=== PATIENT | female | born 1950 | race Caucasian/White ===

== ENCOUNTER 2021-10-09 15:26 | Inpatient (IN) | payer MEDICARE, BC, SELFPAY ==
[2021-10-09] VITALS (28 sets, daily range): BP systolic 93–117; BP diastolic 44–61; PULSE 65–125; RESP 18–41; TEMP 37.4–39.2; O2SAT 92–100; BMI 31.8
--- NOTE | ~2021-10-09 | CT_ITS ---
EXAMINATION: CT abdomen pelvis w con DATE: 10/09/2021 17:51 INDICATION: Localized abdominal pain TECHNIQUE: Computed tomography (CT) of the abdomen and pelvis was performed with 100 mL Omnipaque-350 intravenous contrast. Automated exposure control and iterative reconstruction technique were employe d. The dose-length product was 739.58 mGy-cm. COMPARISON: None FINDINGS: Mild linear discoid atelectasis at the bilateral lung bases. Heart size is normal. Atherosclerotic co ronary artery calcifications. Aortic valve calcific a cyst. No pericardial or pleural effusion. Liver , gallbladder, spleen, pancreas and left adrenal gland are normal. 2.8 x 2.2 cm right adrenal mass. 1 .2 cm right renal cyst. Bilateral nephrolithiasis with 1.3 cm obstructing stone at the left ureterope lvic junction resulting in mild left hydronephrosis and mildly delayed left nephrogram. There is also some mildly thickened enhancing urothelium at the left renal pelvis and mild left perinephric strand ing which suggests potential for associated urinary tract infection. There are couple additional ston es measuring 1 mm and 3-4 mm in the inferior calyx of the right kidney as well as a 3 mm nonobstructi ng stone in an inferior calyx of the right kidney. No other more distal ureteral stones. Bladder uter us and bilateral adnexa are unremarkable. Small fat-containing umbilical hernia. Mild scattered colon ic diverticulosis without adjacent from 3 change to suggest appendicitis. No bowel obstruction. The a ppendix is not visualized. No pericecal inflammatory change to suggest acute appendicitis. No free in traperitoneal gas or fluid. No pathologically enlarged abdominal or pelvic lymphadenopathy. 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 Mild to modera te lumbar and lower thoracic spondylosis. IMPRESSION: 1. Bilateral nephrolithiasis with obstructing 1.3 cm stone at the left ureteropelvic junction with mi ld left hydronephrosis. Correlate with urinalysis to exclude associated urinary tract infection. 2. 2.8 x 2.2 cm right adrenal mass which in the absence of known malignancy is statistically most lik jo-ann to represent an adenoma. Recommend follow-up adrenal protocol pre and postcontrast MRI or CT. Reviewed, dictated and finalized at location A. IMPRESSION: 1. Bilateral nephrolithiasis with obstructing 1.3 cm stone at the left ureterop elvic junction with mild left hydronephrosis. Correlate with urinalysis to excl ude associated urinary tract infection. 2. 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 Recommend follow-up adrenal protocol pre and postcontrast MRI or CT.
--- NOTE | ~2021-10-09 | XR_ITS ---
EXAMINATION: XR retrograde pyelo w/stent LT DATE: 10/09/2021 23:52 CDT INDICATION: LT RETRO WITH STENT PLACEMENT . TECHNIQUE: 4 fluoroscopic images of the lower abdomen were obtained during left retrograde pyelograph y with stent placement performed by the surgeon. I was not present in the operating room. Fluoroscopy exposure time was 30.3 seconds. Cumulative dose was 0.28389 mGy2. COMPARISON: CT abdomen and pelvis, same date FINDINGS: Catheter access to the left collecting system, followed by wire access and contrast injection with th e final imaging demonstrated a left nephroureteral stent in position. IMPRESSION: Fluoroscopic documentation of left retrograde pyelography with stent placement. Please refer to the o perative note for complete procedural details . Reviewed, dictated and finalized at location K. IMPRESSION: Fluoroscopic documentation of left retrograde pyelography with stent placement. Please refer to the operative note for complete procedural details .
--- NOTE | ~2021-10-09 | XR_ITS ---
XR chest 2V 10/09/2021 16:00 Indication: Shortness of breath Procedure: 2 view chest Comparison: No prior studies for comparison. Findings: There is right middle lobe airspace disease, consistent with pneumonia. Heart size normal. Small left pleural effusion. No pneumothorax. Impression: 1: Right middle lobe pneumonia. 2: Small left pleural effusion. Reviewed, dictated and finalized at location A. Impression: 1: Right middle lobe pneumonia. 2: Small left pleural effusion.
--- NOTE | 2021-10-09 15:37 | ECG_ITS ---
Measurements Intervals [place] Rate: 87 P: 32 SD: 147 QRS: 26 QRSD: 90 T: 29 QT: 391 QTc: 472 Interpretive Statements SINUS RHYTHM NORMAL ECG NO PREVIOUS ECG AVAILABLE FOR COMPARISON Electronically Signed On 10-10-2021 9:57:56 CDT by Fernando Aquino M.D.
[2021-10-09 15:51] LABS: Hematocrit 34.5 % (37.0-47.0); Hemoglobin 11.2 g/dL (12.0-15.0); Mean Corpuscular HGB Conc 32.5 g/dl (32-36); Mean Corpuscular Hemoglobin 32.4 pg (26-34); Mean Corpuscular Volume 99.7 fl (80-100); Mean Platelet Volume 9.2 fl (7.4-10.4); Platelet Count Result 468 k/mm3 (150-375); Red Blood Count 3.46 M/mm3 (4.2-5.4); Red Cell Distribution Width 13.5 % (11.5-14.5); White Blood Count 18.9 K/mm3 (4.5-10.0)
[2021-10-09 16:00] LABS: Alanine Aminotransferase 17 U/L (6-35); Albumin Level 3.4 g/dL (3.5-5.1); Alkaline Phosphatase 82 U/L (38-126); Anion Gap 5 mmol/L (8-16); Aspartate Amino Transferase 25 U/L (14-36); Bilirubin,Total 0.9 mg/dL (0.2-1.3); Blood Urea Nitrogen 18 mg/dL (7-17); Calcium 8.5 mg/dL (8.4-10.2); Carbon Dioxide 25 mmol/L (22-30); Chloride 103 mmol/L (98-107); Estimated CRCL calculation 40 ml/min; Estimated Glomerular Filt Rate 40; Glucose 151 mg/dL (65-110); Potassium 3.6 mmol/L (3.4-5.0); Sodium 133 mmol/L (137-145)
[2021-10-09 16:11] LABS: Band Neutrophils Percent 18 % (0-6); Hypochromasia 1+ (NORMAL); Lymphocytes Absolute Manual 0.56 K/mm3 (1.1-4.5); Monocytes Absolute Manual 0.37 K/mm3 (0.1-0.90); Monocytes Percent Manual 2 % (3-9); Neutrophils Absolute Manual 17.95 K/mm3 (1.7-7.2); Neutrophils Percent Manual 77 % (46-73); Platelet Estimate Adequate (Adequate); Total Cells Counted 100
[2021-10-09] MEDS: SODIUM CHLORIDE 0.9% IV 1,000 ML 999 ML IV CONT ×2 (17:32→22:59)
--- NOTE | 2021-10-09 17:47 | ED.GENADULT ---
HPI - General Adult General Chief complaint: Unspecified Stated complaint: SOB, fever, dizzy Time Seen by Provider: 10/09/21 16:52 History of Present Illness HPI narrative: Patient is a 71-year-old female who presents ER with weakness and dizziness. Patient reports 2 weeks ago she began having diarrhea and vomiting. That lasted for 7 days. Since then she has been slowly reintroducing food and water but she has yet to have a bowel movement. She is also been feeling fatigued and like she cannot walk around due to this. She had to be helped off the floor today. Did not strike her head or lose consciousness. Patient reports when she goes from sitting to standing she gets very dizzy. Patient also reports left flank pain for the last 2 days. Related Data Allergies Allergy/AdvReac Type Severity Reaction Status Date / Time Cat Dander Allergy Unknown Uncoded 07/27/13 11:56 Dog Dander Allergy Unknown Uncoded 07/27/13 11:56 Molds and Smuts Allergy Unknown Uncoded 07/27/13 11:56 Review of Systems Review of Systems: All systems reviewed & are unremarkable except as noted in HPI and below Constitutional: Constitutional: Reports chills, Reports fatigue and Reports fever(s) Cardiovascular: Cardiovascular: Denies chest pain, Denies radiating jaw, neck or arm pain and Denies dyspnea on exertion Respiratory: Respiratory: Denies chest congestion and Denies cough Gastrointestinal: Gastrointestinal: Denies abdominal pain, Reports diarrhea, Reports nausea and Reports vomiting Genitourinary: Genitourinary: Denies nocturia, Denies dysuria and Reports flank pain PMFSH Past Medical History Medical History (Updated 10/09/21 @ 19:28 by Quirino Grant MD) Hypercholesterolemia Hypothyroidism Surgical History Surgical History (Updated 10/09/21 @ 19:27 by Quirino Grant MD) History of appendectomy History of section Social History Social History (Updated 10/09/21 @ 19:27 by Quirino Grant MD) Smoking status: Current every day smoker Exam Narrative: GENERAL: Well-appearing, well-nourished, and in no acute distress. HEAD: Normocephalic, atraumatic. EYES: PERRL and EOMI. ENT: Mucous membranes moist. CHEST: Clear to auscultation. No respiratory distress. HEART: Regular rate and rhythm. Normal peripheral pulses. ABDOMEN: Soft, nontender, nondistended. EXTREMITIES: Normal range of motion. No edema. SKIN: Warm, dry, no rash. NEURO: Alert and oriented x3. PSYCH: Normal mood and affect. Course Course Emergency Course: Patient resting comfortably and looks well. Informed of results. Contacted urology who will plan to take patient to the OR tomorrow. Patient started on ceftriaxone. Admit to hospital service per Vital Signs Vital signs: Vital Signs Temperature 101.0 F H 10/09/21 15:41 Pulse Rate 86 10/09/21 15:41 Respiratory Rate 18 10/09/21 15:41 Blood Pressure 100/47 L 10/09/21 15:41 Pulse Oximetry 95 10/09/21 15:41 Oxygen Delivery Room Air 10/09/21 15:41 Temperature 101.0 F H 10/09/21 15:41 Pulse Rate 74 10/09/21 18:59 Respiratory Rate 18 10/09/21 18:59 Blood Pressure 117/61 10/09/21 18:59 Pulse Oximetry 97 10/09/21 18:59 Oxygen Delivery Room Air 10/09/21 15:41 Medical Decision Making Vital Signs Vital Signs: Vital Signs Temperature 101.0 F H 10/09/21 15:41 Pulse Rate 86 10/09/21 15:41 Respiratory Rate 18 10/09/21 15:41 Blood Pressure 100/47 L 10/09/21 15:41 Pulse Oximetry 95 10/09/21 15:41 Oxygen Delivery Room Air 10/09/21 15:41 Temperature 101.0 F H 10/09/21 15:41 Pulse Rate 74 10/09/21 18:59 Respiratory Rate 18 10/09/21 18:59 Blood Pressure 117/61 10/09/21 18:59 Pulse Oximetry 97 10/09/21 18:59 Oxygen Delivery Room Air 10/09/21 15:41 Lab Data Result diagrams: 10/09/21 15:43 10/09/21 15:43 Labs: Lab Results 10/09/21 10/09/21 10/09/21 Range/Units 15:43 15:43 17:
[2021-10-09 18:38] LABS: Appearance Urine Slightly Cloudy (Clear); Bilirubin Urine Negative (Negative); Blood Urine 2+ (Negative); Color Urine Yellow (Yellow); Glucose Urine UA Negative (Negative); Ketones Urine Negative (Negative); Leukocyte Esterase Ur 3+ LEU/UL (Negative); Nitrate Urine Positive (Negative); Protein Urine Negative (Negative); Specific Grav Ur <= 1.005 (1.001-1.035); Urobilinogen Urine 0.2 mg/dL (<2.0); pH Urine 5.5 (5.0-9.0)
[2021-10-09 18:41] LABS: Add Urine Microscopic? YES; Bacteria Urine Trace /hpf; Mucus Urine Rare /lpf; Squamous Epithelial Cell Urine Occasional /hpf (Few); WBC Urine >75 /hpf
--- NOTE | 2021-10-09 19:51 | ED.GENADULT ---
HPI - General Adult General Chief complaint: Unspecified Stated complaint: SOB, fever, dizzy Time Seen by Provider: 10/09/21 16:52 Related Data Home Medications Medication Instructions Recorded Confirmed albuterol sulfate 90 mcg/actuation 1 puff inhalation DAILY 10/09/21 10/09/21 aerosol inhaler levothyroxine 100 mcg tablet 100 mcg PO DAILY 10/09/21 10/09/21 levothyroxine 25 mcg tablet 25 mcg PO DAILY 10/09/21 10/09/21 loteprednol etabonate 0.2 % eye 1 drp EACH EYE DAILY 10/09/21 10/09/21 drops,suspension (Alrex) montelukast 10 mg tablet 10 mg PO DAILY 10/09/21 10/09/21 simvastatin 40 mg tablet 40 mg PO HS 10/09/21 10/09/21 Allergies Allergy/AdvReac Type Severity Reaction Status Date / Time Cat Dander Allergy Unknown Uncoded 07/27/13 11:56 Dog Dander Allergy Unknown Uncoded 07/27/13 11:56 Molds and Smuts Allergy Unknown Uncoded 07/27/13 11:56 [facility] Past Medical History Medical History (Updated 10/09/21 @ 23:36 by Nino Kessler MD) Asthma Hypercholesterolemia Hypothyroidism Obesity Sepsis due to urinary tract infection Surgical History Surgical History History of appendectomy History of section Family History Family History Mother Cerebrovascular accident Father Emphysema lung Sibling AAA (abdominal aortic aneurysm) Sibling Rheumatoid arteritis Social History Social History Smoking packs per day: 1 Smoking cigarettes per day: 20.0 Years smoked: 50 Smoking pack-years: 50.00 Smoking status: Former smoker Tobacco type: cigarettes Second hand tobacco smoke exposure: Yes Alcohol intake: never Substance use: never Spiritual care concerns: No Course Vital Signs Vital signs: Vital Signs Temperature 101.0 F H 10/09/21 15:41 Pulse Rate 86 10/09/21 15:41 Respiratory Rate 18 10/09/21 15:41 Blood Pressure 100/47 L 10/09/21 15:41 Pulse Oximetry 95 10/09/21 15:41 Oxygen Delivery Room Air 10/09/21 15:41 Temperature 97.5 F L 10/10/21 00:25 Pulse Rate 67 10/10/21 00:40 Respiratory Rate 20 10/10/21 00:40 Blood Pressure 94/54 L 10/10/21 00:40 Pulse Oximetry 97 10/10/21 00:40 Oxygen Delivery Nasal Cannula 10/10/21 00:40 Oxygen Flow Rate 4 10/10/21 00:40 Medical Decision Making Vital Signs Vital Signs: Vital Signs Temperature 101.0 F H 10/09/21 15:41 Pulse Rate 86 10/09/21 15:41 Respiratory Rate 18 10/09/21 15:41 Blood Pressure 100/47 L 10/09/21 15:41 Pulse Oximetry 95 10/09/21 15:41 Oxygen Delivery Room Air 10/09/21 15:41 Temperature 97.5 F L 10/10/21 00:25 Pulse Rate 67 10/10/21 00:40 Respiratory Rate 20 10/10/21 00:40 Blood Pressure 94/54 L 10/10/21 00:40 Pulse Oximetry 97 10/10/21 00:40 Oxygen Delivery Nasal Cannula 10/10/21 00:40 Oxygen Flow Rate 4 10/10/21 00:40 Lab Data Result diagrams: 10/09/21 15:43 10/09/21 15:43 Labs: Lab Results 10/09/21 10/09/21 10/09/21 Range/Units 15:43 15:43 17:59 WBC 18.9 H (4.5-10.0) K/mm3 RBC 3.46 L (4.2-5.4) M/mm3 Hgb 11.2 L (12.0-15.0) g/dL Hct 34.5 L (37.0-47.0) % MCV 99.7 (80-100) fl MCH 32.4 (26-34) pg MCHC 32.5 (32-36) g/dl RDW 13.5 (11.5-14.5) % Plt Count 468 H (150-375) k/mm3 MPV 9.2 (7.4-10.4) fl Immature Gran % (Auto) Not Reportable Neut % (Auto) Not Reportable Lymph % (Auto) Not Reportable Granite % (Auto) Not Reportable Eos % (Auto) Not Reportable Baso % (Auto) Not Reportable Lymph # (Auto) Not Reportable Granite # (Auto) Not Reportable Eos # (Auto) Not Reportable Baso # (Auto) Not Reportable Abs Immat Gran (auto) Not Reportable Absolute Neuts (auto) Not Reportable Absolute Nucleated RBC Not Re
--- NOTE | 2021-10-09 19:58 | PM.EVENT ---
Event Note Event Note Event Note: Discussed with ED provider. 13 mm left UPJ stone with mild hydro and evidence of UTI. Vitals all stable. Broad spectrum antibiotics have been ordered by ED. Fluids should be administered aggressively. She's scheduled for a ureteral stent placement as the first case tomorrow morning. If she destabilizes overnight-- tachycardic, hypotensive, T>101, mental status changes, etc., then urology should be paged and we will proceed more urgently overnight to the OR.
[2021-10-09] MEDS: ALBUTEROL SULFATE NEB 2.5 MG/3 ML INH 10 MG INHALATION (20:46)
[2021-10-09] MEDS: ONDANSETRON INJ 4 MG/2 ML VIAL IV PUSH (21:11)
[2021-10-09] MEDS: methylPREDNISolone SOD SUCC 125 MG VIAL IV PUSH (21:12)
[2021-10-09 21:14] LABS: SARS-CoV-2 RNA PCR Negative
--- NOTE | 2021-10-09 21:49 | PC.NURSE ---
RN REPORT GIVEN TO IMU NURSE AT THIS TIME. SARA MCKINNON SUP
[2021-10-09 21:57] LABS: Alveolar/Arterial O2 Gradient 314.2 mmHg; Base Excess ABG 1.8 mEq/l (+/-2.0); Device NON-INVASIVE VENT; Fractional Inspired Oxygen 80 %; HCO3 ABG 25.4 mEq/l (22.0-26.0); Modified Allen's Test Pass; Oxygen Content ABG 16.5 %vol (16.0-22.0); Oxygen Saturation ABG 99.5 % (95.0-100.0); PCO2 ABG 36.3 mmHg (35.0-45.0); PO2 ABG 218.1 mmHg (80.0-100.0); PO2 FiO2 Ratio Arterial Blood 2.73 %; Site Drawn RIGHT RADIAL; Total Hemoglobin 11.6 g/dL (12.0-18.0); pH ABG 7.463 (7.350-7.450)
[2021-10-09 21:58] LABS: Non-Invasive Expiratory Pressure 7 CMH2O; Non-Invasive Inspiratory Pressure 15 CMH2O; Non-Invasive Vent Rate 18 /MIN
--- NOTE | 2021-10-09 22:05 | PC.NURSE ---
This patient, Tess Garcia, was admitted to IMU Room 214-01 at 2204. Patient/family oriented to hospital policies and general routines including ID bracelet, bed and alarms, visiting hours, pain management, procedures, bathroom and other care routines, personal items, smoking policy, room service/diet, and visiting hours. Information on how to activate the Rapid Response Team has been discussed. Patient/Family are encouraged to report perceived risks to care and to ask questions if they do not understand what they are told or what they should do.
--- NOTE | 2021-10-09 23:12 | PC.NURSE ---
Alejo Friedman TEST DEPARTMENT HELPER here to evaluate patient for surgery tonight.
--- NOTE | 2021-10-09 23:28 | WPDANESEPPF ---
Anes - Initial Pre Proc Eval Procedure: Operation Date: 10/09/21 11:30 Proposed Procedures p Cysto, RPG, Stone Ext, Stent Placement(Left) - Nino Kessler MD Date/Time: 10/09/21 23:28 Surgeon: John Frank MD Pre Op Diagnosis: Ureterolithiasis, UTI Patient Data Age: 71 Gender: F Height: 1.65 m Weight: 87 kg Last Vital Signs Temp 37.4 C 10/09/21 22:10 Pulse 114 H 10/09/21 22:10 Resp 20 10/09/21 22:10 BP 97/45 L 10/09/21 22:10 Pulse Ox 94 10/09/21 22:10 O2 Del Method BiPAP 10/09/21 21:45 Allergies Allergy/AdvReac Type Severity Reaction Status Date / Time Cat Dander Allergy Unknown Uncoded 07/27/13 11:56 Dog Dander Allergy Unknown Uncoded 07/27/13 11:56 Molds and Smuts Allergy Unknown Uncoded 07/27/13 11:56 Home Medications Medication Instructions Recorded Confirmed Type albuterol sulfate 90 mcg/actuation 1 puff inhalation DAILY 10/09/21 10/09/21 History aerosol inhaler levothyroxine 100 mcg tablet 100 mcg PO DAILY 10/09/21 10/09/21 History levothyroxine 25 mcg tablet 25 mcg PO DAILY 10/09/21 10/09/21 History loteprednol etabonate 0.2 % eye 1 drp EACH EYE DAILY 10/09/21 10/09/21 History drops,suspension (Alrex) montelukast 10 mg tablet 10 mg PO DAILY 10/09/21 10/09/21 History simvastatin 40 mg tablet 40 mg PO HS 10/09/21 10/09/21 History Laboratory Tests 10/09/21 10/09/21 10/09/21 15:43 15:43 17:59 WBC 18.9 K/mm3 H K/mm3 (4.5-10.0) RBC 3.46 M/mm3 L M/mm3 (4.2-5.4) Hgb 11.2 g/dL L g/dL (12.0-15.0) Hct 34.5 % L % (37.0-47.0) MCV 99.7 fl fl (80-100) MCH 32.4 pg pg (26-34) MCHC 32.5 g/dl g/dl (32-36) RDW 13.5 % % (11.5-14.5) Plt Count 468 k/mm3 H k/mm3 (150-375) MPV 9.2 fl fl (7.4-10.4) Immature Gran % (Auto) Not Reportable Neut % (Auto) Not Reportable Lymph % (Auto) Not Reportable [place] % (Auto) Not Reportable Eos % (Auto) Not Reportable Baso % (Auto) Not Reportable Lymph # (Auto) Not Reportable [place] # (Auto) Not Reportable Eos # (Auto) Not Reportable Baso # (Auto) Not Reportable Abs Immat Gran (auto) Not Reportable Absolute Neuts (auto) Not Reportable Absolute Nucleated RBC Not Reportable Total Counted 100 Neutrophils % (Manual) 77 % H % (46-73) Band Neutrophils % 18 % H % (0-6) Lymphocytes % (Manual) 3.0 % L % (18-44) Monocytes % (Manual) 2 % L % (3-9) Nucleated RBC % Not Reportable Abs Neuts (Manual) 17.95 K/mm3 H K/mm3 (1.7-7.2) Abs Lymphs (Manual) 0.56 K/mm3 L K/mm3 (1.1-4.5) Abs Monocytes (Manual) 0.37 K/mm3 K/mm3 (0.1-0.90) Platelet Estimate Adequate (Adequate) Hypochromasia 1+ (NORMAL) Puncture Site ABG pH ABG pCO2 ABG pO2 ABG PO2/FiO2 Ratio ABG HCO3 ABG O2 Saturation ABG O2 Content ABG Base Excess A-a Gradient Oxyhemoglobin Total Hemoglobin O2 Delivery Device O2 Liters/Min Vent Rate FiO2 Expiratory Pressure Inspiratory Pressure Sodium 133 mmol/L L mmol/L (137-145) Potassium 3.6 mmol/L mmol/L (3.4-5.0) Chloride 103 mmol/L mmol/L (98-107) Carbon Dioxide 25 mmol/L mmol/L (22-30) Anion Gap 5 mmol/L L mmol/L (8-16) BUN 18 mg/dL H mg/dL (7-17) Creatinine 1.30 mg/dL H mg/dL (0.7-1.0) Estim Creat Clear Calc 40 ml/min ml/min Estimated GFR 40 L (59 - ) Glucose 151 mg/dL H mg/dL (65-110) Calcium 8.5 mg/dL mg/dL
--- NOTE | 2021-10-09 23:33 | WPDURCON ---
Assessment and Plan Assessment and plan (1) Ureterolithiasis: Code(s): N20.1 - Calculus of ureter Status: Acute (2) Sepsis due to urinary tract infection: Code(s): A41.9 - Sepsis, unspecified organism; N39.0 - Urinary tract infection, site not specified Status: Acute Assessment and Plan: 71F with 13mm left UPJ stone and infected urine becoming septic - proceed with cystoscopy and left ureteral stent placement - she understands that she will need delayed stone management in a few weeks once infection is cleared generally with ESWL and stent removal; all questions answered; proceed with left ureteral stent placement [facility] Consult Note HPI Date Seen: 10/09/21 Requesting Physician: John Frank MD Primary Care Provider: Owen Casey, PA Consult Narrative Narrative: Tess Garcia is a very nice 71 year old female with a 13mm left UPJ stone who has become pretty clearly septic with tachycardia, fever, and some oxygen requirement. No prior history of stones. Smoker. CT: a few scattered small stones <2mm, 13 mm left UPJ stone with enhancement of the urothelium, HU 950, mild hydro UA infected with nit+ WBC 18 Creat normal Vitals were normal --> now tachycardic, febrile, and becoming hypotensive Review of Systems Review of Systems: All systems reviewed & are unremarkable except as noted in HPI and below PMFSH Past Medical History Medical History (Updated 10/09/21 @ 23:36 by Nino Kessler MD) Asthma Hypercholesterolemia Hypothyroidism Obesity Sepsis due to urinary tract infection Surgical History Surgical History History of appendectomy History of section Family History Family History Mother Cerebrovascular accident Father Emphysema lung Sibling AAA (abdominal aortic aneurysm) Sibling Rheumatoid arteritis Social History Social History Smoking packs per day: 1 Smoking cigarettes per day: 20.0 Years smoked: 50 Smoking pack-years: 50.00 Smoking status: Former smoker Tobacco type: cigarettes Second hand tobacco smoke exposure: Yes Alcohol intake: never Substance use: never Spiritual care concerns: No Meds Home Medications and Allergies Home Medications Medication Instructions Recorded Confirmed Type albuterol sulfate 90 mcg/actuation 1 puff inhalation DAILY 10/09/21 10/09/21 History aerosol inhaler levothyroxine 100 mcg tablet 100 mcg PO DAILY 10/09/21 10/09/21 History levothyroxine 25 mcg tablet 25 mcg PO DAILY 10/09/21 10/09/21 History loteprednol etabonate 0.2 % eye 1 drp EACH EYE DAILY 10/09/21 10/09/21 History drops,suspension (Alrex) montelukast 10 mg tablet 10 mg PO DAILY 10/09/21 10/09/21 History simvastatin 40 mg tablet 40 mg PO HS 10/09/21 10/09/21 History Allergies Allergy/AdvReac Type Severity Reaction Status Date / Time Cat Dander Allergy Unknown Uncoded 07/27/13 11:56 Dog Dander Allergy Unknown Uncoded 07/27/13 11:56 Molds and Smuts Allergy Unknown Uncoded 07/27/13 11:56 Vital Signs Vital Signs - 24 hr 10/09/21 15:41 10/09/21 18:59 10/09/21 18:59 Temperature 38.3 C H Pulse Rate 86 74 74 Respiratory Rate 18 18 Blood Pressure 100/47 L 117/61 Pulse Oximetry 95 97 Oxygen Delivery Room Air 10/09/21 21:11 10/09/21 21:55 10/09/21 17:37 Temperature 39.2 C H 38.4 C H Pulse Rate 65 Respiratory Rate 21 H Blood Pressure Pulse Oximetry 94 Oxygen Delivery 10/09/21 17:51 10/09/21 18:00 10/09/21 18:15 Temperature Pulse Rate 82 80 73 Respiratory Rate 20 18 23 H Blood Pressure Pulse Oximetry 95 97 96 Oxygen Delivery 10/09/21 18:30 10/09/21 19:14 10/09/21 19:56 Temperature Pulse Rate 75 77 86 Respiratory Rate 24 H 24 H 27 H Blood Pressure Pulse
--- NOTE | 2021-10-09 23:37 | PC.NURSE ---
To OR per bed, IV NS running at 999. Report given to Alejo Friedman CRNA.
[2021-10-09] MEDS: LACTATED RINGERS 1,000 ML 30 ML IV CONT (23:45)
[2021-10-10] VITALS (23 sets, daily range): BP systolic 90–114; BP diastolic 50–66; PULSE 50–101; RESP 16–24; TEMP 36–37; O2SAT 93–100
--- NOTE | 2021-10-10 00:06 | P.OP_ITS ---
Procedure Note - Detailed Date of Procedure 10/10/21 Pre-op Diagnosis Ureterolithiasis, UTI Post-op Diagnosis Same Procedure Performed cysto, left retrograde pyelogram, left ureteral stent insertion, Mckeon insertion Surgeon Nino Kessler MD Indications sepsis from obstructive pyelonephritis Findings 1. Large radiopaque stone at the left UPJ 2. Stent in appropriate position 3. Pus poured out of the kidney after stent placement Description of Procedure Patient is brought back to the operative room. She was prepped and draped, padded per protocol. Sedation was utilized. Time-out performed. The bladder was entered with the blunt hot metal car operator. Scope was inserted. Clear cystitis, cloudy urine, erythematous. Fluoroscopy showed the left stone was visible at the UPJ. A Splystson wire was unable to be advanced past the stone. An open- ended ureteral catheter was advanced to the proximal ureter, just distal to the stone. Retrograde pyelogram was performed which eventually pushed the stone up into the kidney. There is minimal hydronephrosis. A Glidewire was then able to be advanced up into the renal pelvis. Pus began pouring out of the kidney. A 6 Bulgarian variable length stent was advanced over the wire. Good curl was noted in the renal pelvis on fluoroscopy and a good curl was visualized in the bladder. Because of the severity of her infection, Mckeon catheter was left in place to be removed in a day or 2 as the infection gets under control.
[2021-10-10] MEDS: SODIUM CHLORIDE 0.9% IV 1,000 ML 125 ML IV CONT ×4 (01:10→21:35)
--- NOTE | 2021-10-10 01:18 | PC.NURSE ---
Received from PACU at 2350 via bed. VSS, NS bolus complete, NS started at 125ml/hr.
--- NOTE | 2021-10-10 01:23 | PM.IMHP ---
H&P: HPI History of Present Illness Date/Time: 10/10/21 01:23 Chief Complaint: rigors Narrative: This is a 71-year-old female with past medical history significant for COPD, hypothyroidism, patient presented to the emergency room with violent rigors, chills, for the last 2 days or so, back pain, flank pain, with radiation to the front. preliminary workup was significant for CT of abdomen and pelvis with large stone at the UP junction[place] [id number], chemistry panel BUN was 18 creatinine was 1.3. Patient has been in her usual state of health prior to these. AT THE TIME OF MY VISIT IN THE EMERGENCY ROOM PATIENT WAS HAVING A FIT OF RIGORS Was unable to give much history. patient later on went for a retrograde pyelogram with stent placement by Urology. Preliminary workup was significant for CT of abdomen and pelvis as follows: IMPRESSION: 1. Bilateral nephrolithiasis with obstructing 1.3 cm stone at the left ureteropelvic junction with mild left hydronephrosis. Correlate with urinalysis to exclude associated urinary tract infection. 2. 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 Recommend follow-up adrenal protocol pre and postcontrast MRI or CT. Review of Systems Review of Systems: rigors, chills, fevers, back pain, left flank pain, poor appetite, nausea and vomiting. Constitutional: Constitutional: Reports chills, Reports fever(s), Reports malaise, Reports poor appetite and Reports weakness Eyes: Eyes: Denies change in vision ENT: Denies dysphagia, Denies vertigo and Denies odynophagia Cardiovascular: Cardiovascular: Denies chest pain, Denies syncope, Denies irregular heart rhythm, Denies lightheadedness, Denies palpitations and Denies dyspnea on exertion Respiratory: Respiratory: Denies chest congestion, Denies cough, Denies excessive phlegm production, Denies pain on inspiration, Denies pain with cough and Denies dyspnea on exertion Gastrointestinal: Gastrointestinal: Reports abdominal pain ( Flank pain), Denies dyspepsia, Denies heartburn, Reports diarrhea, Reports nausea and Denies vomiting Genitourinary: Genitourinary: Reports flank pain ( left-sided) Musculoskeletal: Musculoskeletal: Denies abnormal gait, Reports back pain and Reports myalgias Integumentary/Breasts: Skin/Breast: Denies rash Neurologic: Denies vertigo, Denies dizziness, Denies syncope, Denies focal weakness and Denies Sensory deficit (Neuro) Psychiatric: Psychiatric: Reports no additional psychiatric complaints Endocrine: Endocrine: Denies cold intolerance, Denies fatigue, Denies flushing, Denies heat intolerance, Denies polyphagia, Denies polydipsia and Denies palpitations Hematologic/Lymphatic: Hematologic/Lymphatic: Reports no additional hematologic/lymphatic complaints and Reports as per HPI Allergic/Immunologic: Allergic/Immunologic: Reports no additional allergic/immunologic complaints and Reports as per HPI PMFSH Past Medical History Medical History (Updated 10/10/21 @ 01:24 by John Frank MD) Asthma Hypercholesterolemia Hypothyroidism Obesity Sepsis due to urinary tract infection Surgical History Surgical History History of appendectomy History of section Family History Family History Mother Cerebrovascular accident Father Emphysema lung Sibling AAA (abdominal aortic aneurysm) Sibling Rheumatoid arteritis Social History Social History Smoking packs per day: 1 Smoking cigarettes per day: 20.0 Years smoked: 50 Smoking pack-years: 50.00 Smoking status: Former smoker Tobacco type: cigarettes Second hand tobacco smoke exposure: Yes Alcohol intake: never Substance use: never Spiritual care concerns: No Meds Ho
[2021-10-10 06:13] LABS: Hematocrit 32.2 % (37.0-47.0); Hemoglobin 10.1 g/dL (12.0-15.0); Mean Corpuscular HGB Conc 31.4 g/dl (32-36); Mean Corpuscular Hemoglobin 32.2 pg (26-34); Mean Corpuscular Volume 102.5 fl (80-100); Mean Platelet Volume 9.4 fl (7.4-10.4); Platelet Count Result 368 k/mm3 (150-375); Red Blood Count 3.14 M/mm3 (4.2-5.4); Red Cell Distribution Width 13.8 % (11.5-14.5); White Blood Count 18.9 K/mm3 (4.5-10.0)
[2021-10-10 06:28] LABS: Alanine Aminotransferase 14 U/L (6-35); Alkaline Phosphatase 69 U/L (38-126); Anion Gap 6 mmol/L (8-16); Aspartate Amino Transferase 19 U/L (14-36); Bilirubin,Total 0.5 mg/dL (0.2-1.3); Blood Urea Nitrogen 16 mg/dL (7-17); Calcium 8.5 mg/dL (8.4-10.2); Carbon Dioxide 24 mmol/L (22-30); Chloride 108 mmol/L (98-107); Estimated CRCL calculation 42 ml/min; Estimated Glomerular Filt Rate 44; Glucose 189 mg/dL (65-110); Potassium 4.1 mmol/L (3.4-5.0); Sodium 138 mmol/L (137-145)
[2021-10-10] MEDS: LEVOTHYROXINE SODIUM 25 MCG TABLET PO (06:36)
[2021-10-10] MEDS: LEVOTHYROXINE SODIUM 100 MCG TABLET PO (06:36)
--- NOTE | 2021-10-10 09:18 | WPDANESPN ---
Anes - Prog Note Post-Op Date/Time: 10/10/21 09:18 Cardiovascular status: normal Respiratory status: normal Airway patency: baseline Mental status: baseline Post-Op hydration status: other (nurse reports pt hypotensive this morning.will have fluid challenge) Vital Signs: Last Vital Signs Temp 97.4 F L 10/10/21 08:00 Pulse 50 L 10/10/21 08:00 Resp 16 10/10/21 08:00 BP 93/53 L 10/10/21 08:00 Pulse Ox 94 10/10/21 09:12 O2 Del Method Room Air 10/10/21 09:12 O2 Flow Rate 2 10/10/21 08:58 Pain Score (VAS): 0 I/O: Intake & Output 10/09/21 10/10/21 10/10/21 23:59 07:59 15:59 Intake Total 1350 1200 Output Total 645 Balance 1350 555 Laboratory Tests 10/10/21 05:59 10/10/21 05:59 10/09/21 10/09/21 10/09/21 15:43 15:43 17:59 WBC 18.9 H RBC 3.46 L Hgb 11.2 L Hct 34.5 L MCV 99.7 MCH 32.4 MCHC 32.5 RDW 13.5 Plt Count 468 H MPV 9.2 Immature Gran % (Auto) Not Reportable Neut % (Auto) Not Reportable Lymph % (Auto) Not Reportable [place] % (Auto) Not Reportable Eos % (Auto) Not Reportable Baso % (Auto) Not Reportable Lymph # (Auto) Not Reportable [place] # (Auto) Not Reportable Eos # (Auto) Not Reportable Baso # (Auto) Not Reportable Abs Immat Gran (auto) Not Reportable Absolute Neuts (auto) Not Reportable Absolute Nucleated RBC Not Reportable Total Counted 100 Neutrophils % (Manual) 77 H Band Neutrophils % 18 H Lymphocytes % (Manual) 3.0 L Monocytes % (Manual) 2 L Nucleated RBC % Not Reportable Abs Neuts (Manual) 17.95 H Abs Lymphs (Manual) 0.56 L Abs Monocytes (Manual) 0.37 Platelet Estimate Adequate Hypochromasia 1+ Puncture Site ABG pH ABG pCO2 ABG pO2 ABG PO2/FiO2 Ratio ABG HCO3 ABG O2 Saturation ABG O2 Content ABG Base Excess A-a Gradient Oxyhemoglobin Total Hemoglobin O2 Delivery Device O2 Liters/Min Vent Rate FiO2 Expiratory Pressure Inspiratory Pressure Sodium 133 L Potassium 3.6 Chloride 103 Carbon Dioxide 25 Anion Gap 5 L BUN 18 H Creatinine 1.30 H Estim Creat Clear Calc 40 Estimated GFR 40 L Glucose 151 H Calcium 8.5 Total Bilirubin 0.9 AST 25 ALT 17 Alkaline Phosphatase 82 Total Protein 7.0 Albumin 3.4 L Urine Color Yellow Urine Appearance Slightly cloudy Urine pH 5.5 Ur Specific [place] <= 1.005 Urine Protein Negative Urine Glucose (UA) Negative Urine Ketones Negative Ur Blood (Man) 2+ H Urine Nitrate Positive H Urine Bilirubin Negative Urine Urobilinogen 0.2 Leukocyte Esterase Rfl 3+ H Urine RBC 6-10 H Urine WBC >75 H Ur Squamous Epith Cells Occasional Urine Bacteria Trace Urine Mucus Rare SARS-CoV-2 RNA (RT-PCR) 10/09/21 10/09/21 10/10/21 20:33 21:45 05:59 WBC 18.9 H RBC 3.14 L Hgb 10.1 L Hct 32.2 L MCV 102.5 H MCH 32.2 MCHC 31.4 L RDW 13.8 Plt Count 368 MPV 9.4 Immature Gran % (Auto) Neut % (Auto) Lymph % (Auto) [place] % (Auto) Eos % (Auto) Baso % (Auto) Lymph # (Auto) [place] # (Auto) Eos # (Auto) Baso # (Auto) Abs Immat Gran (auto) Absolute Neuts (auto) Absolute Nucleated RBC Total Counted Neutrophils % (Manual) Band Neutrophils % Lymphocytes % (Manual) Monocytes % (Manual) Nucleated RBC % Abs Neuts (Manual) Abs Lymphs (Manual) Abs Monocytes (Manual) Platelet Estimate Hypochromasia Puncture Site Right radial ABG pH 7.463 H ABG pCO2 36.3 ABG pO2 218.1 H ABG PO2/FiO2 Ratio 2.73 ABG HCO3 25.4 ABG O2 Saturation 99.5 ABG O2 Content 16.5 ABG Base Excess 1.8 A-a Gradient 314.2 Oxyhemoglobin 98.0 Total Hemoglobin 11.6 L O2 Delivery Device Non-invasive vent O2 Liters/Min Not Reportable Vent Rate 18 FiO2 80 Expir
[2021-10-10] MEDS: MONTELUKAST SODIUM 10 MG TABLET PO (09:54)
[2021-10-10] MEDS: SIMVASTATIN 20 MG TABLET 40 MG PO (21:19)
[2021-10-10] MEDS: polyethylene glycoL 3350 17 GM POWD.PACK PO (21:20)
[2021-10-11] VITALS (12 sets, daily range): BP systolic 111–145; BP diastolic 50–68; PULSE 47–73; RESP 15–22; TEMP 36.2–36.7; O2SAT 73–99
[2021-10-11] MEDS: LEVOTHYROXINE SODIUM 25 MCG TABLET PO (06:03)
[2021-10-11] MEDS: LEVOTHYROXINE SODIUM 100 MCG TABLET PO (06:03)
[2021-10-11 06:23] LABS: Hematocrit 31.6 % (37.0-47.0); Hemoglobin 9.4 g/dL (12.0-15.0); Mean Corpuscular HGB Conc 29.7 g/dl (32-36); Mean Corpuscular Hemoglobin 32.3 pg (26-34); Mean Corpuscular Volume 108.6 fl (80-100); Mean Platelet Volume 10.2 fl (7.4-10.4); Platelet Count Result 242 k/mm3 (150-375); Red Blood Count 2.91 M/mm3 (4.2-5.4); Red Cell Distribution Width 13.9 % (11.5-14.5); White Blood Count 16.2 K/mm3 (4.5-10.0)
[2021-10-11 06:35] LABS: Anion Gap 8 mmol/L (8-16); Blood Urea Nitrogen 23 mg/dL (7-17); Calcium 8.3 mg/dL (8.4-10.2); Carbon Dioxide 20 mmol/L (22-30); Chloride 110 mmol/L (98-107); Estimated CRCL calculation 51 ml/min; Estimated Glomerular Filt Rate 55; Glucose 111 mg/dL (65-110); Potassium 4.7 mmol/L (3.4-5.0); Sodium 138 mmol/L (137-145)
[2021-10-11] MEDS: SODIUM CHLORIDE 0.9% IV 1,000 ML 125 ML IV CONT ×2 (09:19→17:20)
[2021-10-11] MEDS: MONTELUKAST SODIUM 10 MG TABLET PO (09:20)
--- NOTE | 2021-10-11 10:22 | PM.IMPN ---
Progress Note: A&P Assessment and Plan (1) Sepsis due to urinary tract infection: Code(s): A41.9 - Sepsis, unspecified organism; N39.0 - Urinary tract infection, site not specified Status: Acute Assessment and Plan: patient is on broad-spectrum antibiotics early goal therapy ongoing cultures in progress Continue IV antibiotics (2) UTI (urinary tract infection): Code(s): N39.0 - Urinary tract infection, site not specified Status: Acute Assessment and Plan: continue antibiotics (3) Ureterolithiasis: Code(s): N20.1 - Calculus of ureter Status: Acute Assessment and Plan: patient is now status post retrograde pyelograms with left-sided stent placement (4) Acute respiratory failure with hypoxia: Code(s): J96.01 - Acute respiratory failure with hypoxia Status: Acute Assessment and Plan: on supplemental oxygen by BiPAP ABG was 7.4 /39/214 Subjective Date/time seen: 10/11/21 10:22 No complaints, pain control Exam Narrative: patient is in a stretcher Const: General: well developed, alert, awake, acute distress moderate ( violent rigors), ill appearing acutely and uncomfortable Nutritional Appearance: average body habitus Orientation/consciousness: patient oriented x3 HENMT: Head: normal to inspection, normocephalic and atraumatic Ears: hearing grossly normal bilaterally Face and sinus: normal facial exam Eyes: General: appearance normal, both eyes and all related structures Pupils: Equal, round and reactive pupils present EOM: EOMs intact bilaterally Neck: Neck: full ROM, no lymphadenopathy and no JVD Thyroid: thyroid normal Lymphatic: no lymphadenopathy noted Resp: Effort & Inspection: normal respiratory effort and able to speak in complete sentences Auscultation: clear to auscultation bilaterally Cardio: Jugular venous distension: no JVD Rate: regular rate Rhythm: regular rhythm Heart sounds: S1 normal heart sound present and S2 normal heart sound present : General: Yes deferred Skin: Rashes: no rashes Wounds: no wounds Neuro: General: patient oriented x3, CN's II-XI intact bilaterally and Unable to assess gait Cranial nerves: Yes CN's II-XII intact bilaterally and Yes Equal, round and reactive pupils present Cognition (Neuro): normal cognition Speech: normal speech Gait exam (Neuro): Unable to assess gait Motor exam (neuro): 5/5 motor strength present throughout Sensory Exam: No Sensory deficit (Neuro) Extrem: General: normal to inspection, full ROM, no joint enlargement and no pedal edema Objective Data Vital Signs Vital Signs: Vital Signs - 24 hr 10/10/21 12:00 10/10/21 12:00 10/10/21 14:00 Temperature 97.9 F Pulse Rate 63 67 58 L Respiratory Rate 20 Blood Pressure 108/55 L Pulse Oximetry 93 Oxygen Delivery Oxygen Flow Rate 10/10/21 12:00 10/10/21 16:00 10/10/21 16:00 Temperature Pulse Rate 63 Respiratory Rate Blood Pressure Pulse Oximetry 96 94 Oxygen Delivery Room Air Room Air Oxygen Flow Rate 10/10/21 16:00 10/10/21 18:00 10/10/21 20:00 Temperature 97.9 F 98.1 F Pulse Rate 62 101 H 61 Respiratory Rate 24 H 16 Blood Pressure 113/58 L 114/65 Pulse Oximetry 95 95 Oxygen Delivery Oxygen Flow Rate 10/10/21 20:00 10/10/21 20:00 10/10/21 22:00 Temperature Pulse Rate 65 61 Respiratory Rate Blood Pressure Pulse Oximetry 95 Oxygen Delivery Room Air Oxygen Flow Rate 10/10/21 23:38 10/11/21 00:00 10/11/21 00:00 Temperature 97.6 F Pulse Rate 84 55 L Respiratory Rate 16 Blood Pressure 114/66 Pulse Oximetry 93 95 Oxygen Delivery Room Air Oxygen Flow Rate 10/11/21 00:46 10/11/21 02:00 10/11/21 03:39 Temperature Pulse Rate 56 L Respiratory Rate Blood Pressure Pulse Oximetry 98 99 Oxygen Delivery Nasal Cannula Room Air Oxygen Flow Rate 2 10/11/21 04:00 10/11/21 04:00 10/11/21 04:00
--- NOTE | 2021-10-11 11:08 | WPDUROPN2 ---
Progress Note: A&P Assessment and Plan (1) Sepsis due to urinary tract infection: Code(s): A41.9 - Sepsis, unspecified organism; N39.0 - Urinary tract infection, site not specified Status: Acute Assessment and Plan: 71F with 13 mm left UPJ stone now s/p left ureteral stent placement - she should DC with 2 weeks of culture specific antibiotics; either bactrim or cephalexin (FQ resistant and nitrofurantoin inappropriate for pyelo) - will arrrange f/u with ESWL and stent removal in 2-3 weeks; procedure discussed and reviewed [facility] Subjective Subjective Date/Time Seen: 10/11/21 11:08 Feeling much better after stent- findings reviewed Having some diarrhea Wants brady out UCx E coli, BCx NGTD Review of Systems Review of Systems: All systems reviewed & are unremarkable except as noted in HPI and below Exam Const: General: cooperative and healthy appearing Urinary Catheter: Urinary Catheter: urine clear Objective Data Vital Signs Vital Signs: Vital Signs - 24 hr 10/10/21 12:00 10/10/21 12:00 10/10/21 14:00 Temperature 36.6 C Pulse Rate 63 67 58 L Respiratory Rate 20 Blood Pressure 108/55 L Pulse Oximetry 93 Oxygen Delivery Oxygen Flow Rate 10/10/21 12:00 10/10/21 16:00 10/10/21 16:00 Temperature Pulse Rate 63 Respiratory Rate Blood Pressure Pulse Oximetry 96 94 Oxygen Delivery Room Air Room Air Oxygen Flow Rate 10/10/21 16:00 10/10/21 18:00 10/10/21 20:00 Temperature 36.6 C 36.7 C Pulse Rate 62 101 H 61 Respiratory Rate 24 H 16 Blood Pressure 113/58 L 114/65 Pulse Oximetry 95 95 Oxygen Delivery Oxygen Flow Rate 10/10/21 20:00 10/10/21 20:00 10/10/21 22:00 Temperature Pulse Rate 65 61 Respiratory Rate Blood Pressure Pulse Oximetry 95 Oxygen Delivery Room Air Oxygen Flow Rate 10/10/21 23:38 10/11/21 00:00 10/11/21 00:00 Temperature 36.4 C Pulse Rate 84 55 L Respiratory Rate 16 Blood Pressure 114/66 Pulse Oximetry 93 95 Oxygen Delivery Room Air Oxygen Flow Rate 10/11/21 00:46 10/11/21 02:00 10/11/21 03:39 Temperature Pulse Rate 56 L Respiratory Rate Blood Pressure Pulse Oximetry 98 99 Oxygen Delivery Nasal Cannula Room Air Oxygen Flow Rate 2 10/11/21 04:00 10/11/21 04:00 10/11/21 04:00 Temperature 36.2 C L Pulse Rate 48 L 51 L Respiratory Rate 15 Blood Pressure 111/50 L Pulse Oximetry 99 99 Oxygen Delivery Nasal Cannula Oxygen Flow Rate 2 10/11/21 06:00 10/11/21 07:51 10/11/21 07:58 Temperature Pulse Rate 47 L Respiratory Rate Blood Pressure Pulse Oximetry 99 94 Oxygen Delivery Nasal Cannula Room Air Oxygen Flow Rate 2 10/11/21 08:00 10/11/21 08:00 10/11/21 10:00 Temperature 36.7 C Pulse Rate 56 L 57 L 72 Respiratory Rate 20 Blood Pressure 122/68 Pulse Oximetry 91 Oxygen Delivery Oxygen Flow Rate 10/11/21 08:00 Temperature Pulse Rate Respiratory Rate Blood Pressure Pulse Oximetry 99 Oxygen Delivery Nasal Cannula Oxygen Flow Rate 2 Intake/Output Intake/Output: Intake & Output 10/08/21 10/09/21 10/10/21 10/11/21 23:59 23:59 23:59 23:59 Intake Total 1350 4520 1350 Output Total 1195 650 Balance 1350 3325 700 Meds/Results Medications: Active Medications Generic Name Dose Route Start Last Admin Trade Name Freq PRN Reason Stop Dose Admin Acetaminophen 650 mg 10/09/21 19:29 Acetaminophen 325 Mg Tablet PO Q4H PRN Mild Pain (1-3) or Fever Hydrocodone Bitart/Acetaminophen 1 tab 10/09/21 19:29 Hydrocodone/Acetaminophen (*Crx) 5-325 Mg Tablet PO Q4H PRN Pain Rated 4-6 Albuterol 2 puff 10/10/21 09:00 Albuterol Sulfate (*Sp) Aerosol 1 Puff INHALATION Q4H PRN Shortness Of Breath Or Wheezing Fentanyl Citrate 25 mcg 10/09/21 23:39 Fentanyl Citrate Inj (*Crx) 100 Mcg/2 Ml Vial IV PUSH Q
[2021-10-11] MEDS: ALBUTEROL SULFATE (*SP) AEROSOL 1 PUFF 2 PUFF INHALATION (17:29)
[2021-10-11] MEDS: SACCHAROMYCES BOULARDII 250 MG CAPSULE PO (20:51)
[2021-10-11] MEDS: SIMVASTATIN 20 MG TABLET 40 MG PO (20:51)
[2021-10-12] MEDS: LEVOTHYROXINE SODIUM 100 MCG TABLET PO (05:58)
[2021-10-12] MEDS: LEVOTHYROXINE SODIUM 25 MCG TABLET PO (05:58)
[2021-10-12 06:00] VITALS: BP 128/63; PULSE 67; RESP 20; TEMP 36.6; O2SAT 91
[2021-10-12] MEDS: ALBUTEROL SULFATE (*SP) AEROSOL 1 PUFF 2 PUFF INHALATION (06:06)
[2021-10-12 06:20] LABS: Hematocrit 32.3 % (37.0-47.0); Hemoglobin 10.1 g/dL (12.0-15.0); Mean Corpuscular HGB Conc 31.3 g/dl (32-36); Mean Corpuscular Hemoglobin 32.1 pg (26-34); Mean Corpuscular Volume 102.5 fl (80-100); Mean Platelet Volume 10.1 fl (7.4-10.4); Platelet Count Result 399 k/mm3 (150-375); Red Blood Count 3.15 M/mm3 (4.2-5.4); Red Cell Distribution Width 13.7 % (11.5-14.5); White Blood Count 10.7 K/mm3 (4.5-10.0)
--- NOTE | 2021-10-12 06:23 | WPDUROPN2 ---
Progress Note: A&P Assessment and Plan (1) Sepsis due to urinary tract infection: Code(s): A41.9 - Sepsis, unspecified organism; N39.0 - Urinary tract infection, site not specified Status: Acute Assessment and Plan: 71F with 13 mm left UPJ stone now s/p left ureteral stent placement - she should DC with 2 weeks of culture specific antibiotics; either bactrim or cephalexin (FQ resistant and nitrofurantoin inappropriate for pyelo) - will arrrange f/u with ESWL and stent removal in 2-3 weeks; procedure discussed and reviewed 10/12/2021 As above, home when cultures complete / outpatient ESWL in 2-3 weeks. Will remove catheter for voiding trial today. Subjective Subjective Date/Time Seen: 10/12/21 06:23 No complaints Review of Systems Cardiovascular: Cardiovascular: Denies chest pain, Denies lightheadedness, Denies palpitations and Denies dyspnea Respiratory: Respiratory: Denies dyspnea Gastrointestinal: Gastrointestinal: Denies diarrhea, Denies nausea and Denies vomiting Genitourinary: Genitourinary: Denies hematuria and Denies dysuria Endocrine: Endocrine: Denies palpitations Exam Const: General: no acute distress Resp: Effort & Inspection: normal respiratory effort GI: Inspection: non-distended GI Palp: No abdominal tenderness and No Guarding due to palpation present (GI) Auscultation: normal bowel sounds Objective Data Vital Signs Vital Signs: Vital Signs - 24 hr 10/11/21 07:51 10/11/21 07:58 10/11/21 08:00 Temperature 98.0 F Pulse Rate 56 L Respiratory Rate 20 Blood Pressure 122/68 Pulse Oximetry 99 94 91 Oxygen Delivery Nasal Cannula Room Air Oxygen Flow Rate 2 10/11/21 08:00 10/11/21 10:00 10/11/21 08:00 Temperature Pulse Rate 57 L 72 Respiratory Rate Blood Pressure Pulse Oximetry 99 Oxygen Delivery Nasal Cannula Oxygen Flow Rate 2 10/11/21 14:55 10/11/21 20:56 10/12/21 06:00 Temperature 97.9 F 98.0 F 97.9 F Pulse Rate 73 54 L 67 Respiratory Rate 22 H 20 20 Blood Pressure 145/68 H 134/67 128/63 Pulse Oximetry 73 L 94 91 Oxygen Delivery Oxygen Flow Rate Intake/Output Intake/Output: Intake & Output 10/09/21 10/10/21 10/11/21 10/12/21 23:59 23:59 23:59 23:59 Intake Total 1350 4520 2930 300 Output Total 8653 778 2133 Balance 1350 3325 2280 -1250 Meds/Results Medications: Active Medications Generic Name Dose Route Start Last Admin Trade Name Freq PRN Reason Stop Dose Admin Acetaminophen 650 mg 10/09/21 19:29 Acetaminophen 325 Mg Tablet PO Q4H PRN Mild Pain (1-3) or Fever Hydrocodone Bitart/Acetaminophen 1 tab 10/09/21 19:29 Hydrocodone/Acetaminophen (*Crx) 5-325 Mg Tablet PO Q4H PRN Pain Rated 4-6 Albuterol 2 puff 10/10/21 09:00 10/12/21 06:06 Albuterol Sulfate (*Sp) Aerosol 1 Puff INHALATION 2 puff Q4H PRN Administration Shortness Of Breath Or Wheezing Artificial Tears 1 drop 10/11/21 17:00 10/11/21 17:22 Artificial Tears Ophth Soln 15 Ml Bottle EACH EYE Not Given BID JEROME Ceftriaxone Sodium/Dextrose 1 gm in 50 mls @ 100 mls/hr 10/10/21 18:00 10/11/21 17:55 Rocephin 1 Gm/D5w 50 Ml IVPB Infused Q24H JEROME Infusion Sodium Chloride 1,000 mls @ 125 mls/hr 10/09/21 19:30 10/12/21 06:00 Normal Saline Iv IV CONT Not Given .Q8H JEROME Levothyroxine Sodium 25 mcg 10/10/21 06:30 10/12/21 05:58 Levothyroxine Sodium 25 Mcg Tablet PO 25 mcg DAILY@0630 JEROME Administration Levothyroxine Sodium 100 mcg 10/10/21 06:30 10/12/21 05:58 Levothyroxine Sodium 100 Mcg Tablet PO 100 mcg DAILY@0630 JEROME Administration Montelukast Sodium 10 mg 10/10/21 09:00 10/11/21 09:20 Montelukast Sodium 10 Mg Tablet PO 10 mg DAILY JEROME Administration Morphine Sulfate 4 mg 10/09/21 19:29 Morphine Sulfate (*Crx) 4 Mg/Ml Inj IV PUSH Q2H PRN Pain Rated 7-10 Ondansetron HCl 4 mg 10/09/21 19:29 10/09/21 21:11 Ondan
[2021-10-12 08:43] LABS: Anion Gap 1 mmol/L (8-16); Blood Urea Nitrogen 14 mg/dL (7-17); Calcium 7.8 mg/dL (8.4-10.2); Carbon Dioxide 26 mmol/L (22-30); Chloride 110 mmol/L (98-107); Estimated CRCL calculation 57 ml/min; Estimated Glomerular Filt Rate > 60; Glucose 92 mg/dL (65-110); Potassium 3.7 mmol/L (3.4-5.0); Sodium 137 mmol/L (137-145)
[2021-10-12] MEDS: ARTIFICIAL TEARS OPHTH SOLN 15 ML BOTTLE 1 DROP EACH EYE ×2 (08:47→17:06)
[2021-10-12] MEDS: MONTELUKAST SODIUM 10 MG TABLET PO (08:49)
[2021-10-12] MEDS: SACCHAROMYCES BOULARDII 250 MG CAPSULE PO ×3 (08:49→17:06)
--- NOTE | 2021-10-12 10:01 | PM.IMPN ---
Progress Note: A&P Assessment and Plan (1) Sepsis due to urinary tract infection: Code(s): A41.9 - Sepsis, unspecified organism; N39.0 - Urinary tract infection, site not specified Status: Acute Assessment and Plan: patient is on broad-spectrum antibiotics early goal therapy ongoing cultures in progress Continue IV antibiotics (2) UTI (urinary tract infection): Code(s): N39.0 - Urinary tract infection, site not specified Status: Acute Assessment and Plan: continue antibiotics (3) Ureterolithiasis: Code(s): N20.1 - Calculus of ureter Status: Acute Assessment and Plan: patient is now status post retrograde pyelograms with left-sided stent placement (4) Acute respiratory failure with hypoxia: Code(s): J96.01 - Acute respiratory failure with hypoxia Status: Acute Assessment and Plan: on supplemental oxygen by BiPAP ABG was 7.4 39/214 Subjective Date/time seen: 10/12/21 10:01 No complaints Exam Narrative: patient is in a stretcher Const: General: well developed, alert, awake, acute distress moderate ( violent rigors), ill appearing acutely and uncomfortable Nutritional Appearance: average body habitus Orientation/consciousness: patient oriented x3 HENMT: Head: normal to inspection, normocephalic and atraumatic Ears: hearing grossly normal bilaterally Face and sinus: normal facial exam Eyes: General: appearance normal, both eyes and all related structures Pupils: Equal, round and reactive pupils present EOM: EOMs intact bilaterally Neck: Neck: full ROM, no lymphadenopathy and no JVD Thyroid: thyroid normal Lymphatic: no lymphadenopathy noted Resp: Effort & Inspection: normal respiratory effort and able to speak in complete sentences Auscultation: clear to auscultation bilaterally Cardio: Jugular venous distension: no JVD Rate: regular rate Rhythm: regular rhythm Heart sounds: S1 normal heart sound present and S2 normal heart sound present : General: Yes deferred Skin: Rashes: no rashes Wounds: no wounds Neuro: General: patient oriented x3, CN's II-XI intact bilaterally and Unable to assess gait Cranial nerves: Yes CN's II-XII intact bilaterally and Yes Equal, round and reactive pupils present Cognition (Neuro): normal cognition Speech: normal speech Gait exam (Neuro): Unable to assess gait Motor exam (neuro): 5/5 motor strength present throughout Sensory Exam: No Sensory deficit (Neuro) Extrem: General: normal to inspection, full ROM, no joint enlargement and no pedal edema Objective Data Vital Signs Vital Signs: Vital Signs - 24 hr 10/11/21 14:55 10/11/21 20:56 10/12/21 06:00 Temperature 97.9 F 98.0 F 97.9 F Pulse Rate 73 54 L 67 Respiratory Rate 22 H 20 20 Blood Pressure 145/68 H 134/67 128/63 Pulse Oximetry 73 L 94 91 Intake/Output Intake/Output: Intake & Output 10/09/21 10/10/21 10/11/21 10/12/21 23:59 23:59 23:59 23:59 Intake Total 1350 4520 2930 540 Output Total 4028 068 2606 Balance 1350 3325 2280 -1010 Meds/Results Medications: Active Medications Generic Name Dose Route Start Last Admin Trade Name Freq PRN Reason Stop Dose Admin Acetaminophen 650 mg 10/09/21 19:29 Acetaminophen 325 Mg Tablet PO Q4H PRN Mild Pain (1-3) or Fever Hydrocodone Bitart/Acetaminophen 1 tab 10/09/21 19:29 Hydrocodone/Acetaminophen (*Crx) 5-325 Mg Tablet PO Q4H PRN Pain Rated 4-6 Albuterol 2 puff 10/10/21 09:00 10/12/21 06:06 Albuterol Sulfate (*Sp) Aerosol 1 Puff INHALATION 2 puff Q4H PRN Administration Shortness Of Breath Or Wheezing Artificial Tears 1 drop 10/11/21 17:00 10/12/21 08:47 Artificial Tears Ophth Soln 15 Ml Bottle EACH EYE 1 drop BID JEROME Administration Sodium Chloride 1,000 mls @ 125 mls/hr 10/09/21 19:30 10/12/21 08:48 Normal Saline Iv IV CONT 125 mls/hr .Q8H JEROME Infusion Ceftriaxone Sodium 2 gm/ 100 mls @ 2
[2021-10-12 10:05] VITALS: O2SAT 94
[2021-10-12] MEDS: SODIUM CHLORIDE 0.9% IV 1,000 ML 125 ML IV CONT ×2 (11:14→19:46)
[2021-10-12] MEDS: cefTRIAXone 2 GM in SODIUM CHLORIDE 0.9% IV 100 ML 200 ML IVPB (11:14)
[2021-10-12 14:00] VITALS: BP 138/57; PULSE 76; RESP 18; TEMP 36.8; O2SAT 95
[2021-10-12] MEDS: SIMVASTATIN 20 MG TABLET 40 MG PO (21:16)
[2021-10-12 22:00] VITALS: BP 144/65; PULSE 62; RESP 18; TEMP 36.7; O2SAT 96
[2021-10-13] MEDS: SODIUM CHLORIDE 0.9% IV 1,000 ML 125 ML IV CONT (03:54)
[2021-10-13] MEDS: LEVOTHYROXINE SODIUM 25 MCG TABLET PO (05:59)
[2021-10-13] MEDS: LEVOTHYROXINE SODIUM 100 MCG TABLET PO (05:59)
[2021-10-13 06:00] VITALS: BP 141/63; PULSE 59; RESP 20; TEMP 36.2; O2SAT 95
[2021-10-13] MEDS: ALBUTEROL SULFATE (*SP) AEROSOL 1 PUFF 2 PUFF INHALATION (07:51)
[2021-10-13 08:00] VITALS: RESP 18
[2021-10-13 08:02] VITALS: RESP 18
[2021-10-13] MEDS: cefTRIAXone 2 GM in SODIUM CHLORIDE 0.9% IV 100 ML 200 ML IVPB (08:50)
[2021-10-13] MEDS: MONTELUKAST SODIUM 10 MG TABLET PO (08:50)
[2021-10-13] MEDS: SACCHAROMYCES BOULARDII 250 MG CAPSULE PO (08:50)
[2021-10-13] MEDS: ARTIFICIAL TEARS OPHTH SOLN 15 ML BOTTLE 1 DROP EACH EYE (08:51)
--- NOTE | 2021-10-13 11:28 | PM.DS ---
DS: Admitting Diagnosis Discharge Date October 13, 2021 Admitting Diagnosis Pyelo with ureteral stone DS: Discharge Diagnosis Discharge Diagnosis (1) Sepsis due to urinary tract infection: Code(s): A41.9 - Sepsis, unspecified organism; N39.0 - Urinary tract infection, site not specified Status: Acute Assessment and Plan: patient is on broad-spectrum antibiotics early goal therapy ongoing cultures in progress Continue IV antibiotics (2) UTI (urinary tract infection): Code(s): N39.0 - Urinary tract infection, site not specified Status: Acute Assessment and Plan: continue antibiotics (3) Ureterolithiasis: Code(s): N20.1 - Calculus of ureter Status: Acute Assessment and Plan: patient is now status post retrograde pyelograms with left-sided stent placement (4) Acute respiratory failure with hypoxia: Code(s): J96.01 - Acute respiratory failure with hypoxia Status: Acute Assessment and Plan: on supplemental oxygen by BiPAP ABG was 7.4 /39/214 DS: Summary Hospital Course Hospital Course: Patient was admitted for pyelonephritis secondary ureteral stone. Also had a UTI. Stent was placed she will need to follow up with Urology for the shockwave therapy. Oral antibiotics on discharge. Case total oral antibiotics. Otherwise patient is stable can be discharged. Time Spent with Patient Time attestation: Total time spent providing and/or coordinating discharge services: Exam Narrative: patient is in a stretcher Const: General: well developed, alert, awake, acute distress moderate ( violent rigors), ill appearing acutely and uncomfortable Nutritional Appearance: average body habitus Orientation/consciousness: patient oriented x3 HENMT: Head: normal to inspection, normocephalic and atraumatic Ears: hearing grossly normal bilaterally Face and sinus: normal facial exam Eyes: General: appearance normal, both eyes and all related structures Pupils: Equal, round and reactive pupils present EOM: EOMs intact bilaterally Neck: Neck: full ROM, no lymphadenopathy and no JVD Thyroid: thyroid normal Lymphatic: no lymphadenopathy noted Resp: Effort & Inspection: normal respiratory effort and able to speak in complete sentences Auscultation: clear to auscultation bilaterally Cardio: Jugular venous distension: no JVD Rate: regular rate Rhythm: regular rhythm Heart sounds: S1 normal heart sound present and S2 normal heart sound present : General: Yes deferred Skin: Rashes: no rashes Wounds: no wounds Neuro: General: patient oriented x3, CN's II-XI intact bilaterally and Unable to assess gait Cranial nerves: Yes CN's II-XII intact bilaterally and Yes Equal, round and reactive pupils present Cognition (Neuro): normal cognition Speech: normal speech Gait exam (Neuro): Unable to assess gait Motor exam (neuro): 5/5 motor strength present throughout Sensory Exam: No Sensory deficit (Neuro) Extrem: General: normal to inspection, full ROM, no joint enlargement and no pedal edema DS: Data Data Completed and Pending Labs on day of discharge: Preliminary micro results at discharge 10/09/21 18:14 Blood Culture - Preliminary Blood Escherichia Coli 10/09/21 18:37 Blood Culture - Preliminary Blood Discharge Plan Discharge Attending physician on discharge: Tony Milan Consulting providers: Nino Kessler Discharging Clinician: Tony Milan Patient Disposition: Home, Self-Care Activity: no preference Diet: as tolerated Patient Instructions: Antibiotic Form, Kidney Stones (DC), Urinary Tract Infection in Women (DC), Cystoscopy (DC) Stand Alone Forms: General Discharge Information Follow-up/Referrals: Nino Kessler MD [Physician] - Discharge Medications: New cefdinir 300 mg capsule 300 mg PO Q12H 14 Days Qty: 28 0RF Continued Alrex 0.2 % drops,suspension 1 drp E
--- NOTE | 2021-10-17 11:54 | PC.NURSE ---
Patient called stating that itching started yesterday after starting antibiotic on discharge. Discharging hospitalist made aware. States ok for patient to take Benadryl but to seek medical attention and stop taking antibiotic if any life threatening symptoms were to arise. Patient made aware and voiced understanding.
== END 2021-10-13 12:37 | disposition home or self-care (01) | DRG 871 ==
LOC: ANHED 19:28 → ANHIMU 21:01 → ANH3MEDSUR 10-12 09:26 → ANHIMU 10-14 10:50
PROVIDERS: Emergency Medicine; Urology; Admitting Provider Internal Medicine; Emergency Provider Emergency Medicine; PCP Physician Assistant; Visit Provider Chiropractor
PROC: 0T9780Z Drainage of Left Ureter with Drainage Device, Via Natural or Artificial Opening Endoscopic (ICD-10-PCS; CPT 52352; principal; 2021-10-09 11:30)
DX: A41.51 Sepsis due to Escherichia coli [E. coli] (principal); J96.01 Acute respiratory failure with hypoxia; N13.6 Pyonephrosis; J44.9 Chronic obstructive pulmonary disease, unspecified; E78.00 Pure hypercholesterolemia, unspecified; E03.9 Hypothyroidism, unspecified; E66.9 Obesity, unspecified; F17.200 Nicotine dependence, unspecified, uncomplicated; Z20.822 Contact with and (suspected) exposure to COVID-19
CPT/HCPCS: 36415; 36600; 71046; 74177; 74420; 80048; 80053; 81001; 82805; 85025; 85027; 87040; 87077; 87086; 87186; 93005; 94002; 94640; 96361; 96365; 96375; 99285; A9270; C1758; C1769; C2617; C9803; G0378; J0131; J0696; J1100; J2405; J2543; J2704; J2930; J3010; J3370; J7030; J7120; Q9966; Q9967; U0003; U0005

== ENCOUNTER 2023-01-24 16:45 | Inpatient (IN) | payer MEDICARE, BC, SELFPAY ==
[2023-01-24] VITALS (12 sets, daily range): BP systolic 109–136; BP diastolic 45–92; PULSE 110–128; RESP 19–30; TEMP 36.9–37.5; O2SAT 86–94; BMI 35.2
--- NOTE | ~2023-01-24 | XR_ITS ---
EXAMINATION: XR chest 1V portable INDICATION: Shortness of breath TECHNIQUE: Portable AP chest at 1658 hours COMPARISON: 10/09/2021 FINDINGS: The lungs are free of acute opacities. No pleural effusion or pneumothorax. The cardiomedia stinal silhouette is normal. IMPRESSION: 1. No acute cardiopulmonary abnormality. Reviewed, dictated and finalized at location B. MACHINE FILLER
--- NOTE | 2023-01-24 16:50 | ECG_ITS ---
Measurements Intervals [place] Rate: 111 P: 56 ID: 143 QRS: 52 QRSD: 94 T: 41 QT: 343 QTc: 467 Interpretive Statements SINUS TACHYCARDIA NONSPECIFIC ST & T-WAVE ABNORMALITY ABNORMAL ECG COMPARED TO ECG 10/09/2021 15:43:08 SINUS TACHYCARDIA NOW PRESENT T-WAVE ABNORMALITY NOW PRESENT Electronically Signed On 01-25-2023 16:50:27 ORANGE PEEL OPERATOR by Fernando Aquino M.D.
--- NOTE | 2023-01-24 16:52 | ED.SOB ---
HPI - SOB/Dyspnea General Chief Complaint: Shortness of Breath/Dyspnea Stated Complaint: SOB History of Present Illness HPI Narrative: Patient is a 72-year-old female with history of presumed COPD here with shortness of breath. She states she has had episodic shortness of breath over the last 1 year and has recently seen a subscription crew leader was suspicion of COPD. She notes that this episode of shortness of breath began about 3-4 days ago. She endorses increased cough and sputum production. She also feels as though she has been febrile at home. No associated chest pain. No diarrhea or abdominal pain. She called EMS, she was saturating around 88% on RA when EMS arrived. She does not normally use home O2. She then received a duoneb, albuterol nebulizer and solu-medrol en route and she was placed on oxygen. No known sick contacts. no prior cardiac history, no known CHF, no lower extremity edema. No prior history of PE or DVT. Related Data Home Medications Medication Instructions Recorded Confirmed albuterol sulfate 90 mcg/actuation 1 puff inhalation DAILY 10/09/21 10/09/21 aerosol inhaler levothyroxine 100 mcg tablet 100 mcg PO DAILY 10/09/21 10/09/21 levothyroxine 25 mcg tablet 25 mcg PO DAILY 10/09/21 10/09/21 loteprednol etabonate 0.2 % eye 1 drp EACH EYE DAILY 10/09/21 10/09/21 drops,suspension (Alrex) montelukast 10 mg tablet 10 mg PO DAILY 10/09/21 10/09/21 simvastatin 40 mg tablet 40 mg PO HS 10/09/21 10/09/21 ascorbic acid (vitamin C) 500 mg 500 mg PO DAILY 10/11/21 10/11/21 tablet cetirizine 10 mg tablet (Zyrtec) 10 mg PO DAILY PRN Allergy Symptoms 10/11/21 10/11/21 cholecalciferol (vitamin D3) 100 100 mcg PO DAILY 10/11/21 10/11/21 mcg (4,000 unit) tablet cyclosporine 0.05 % eye drops in a 1 drp EACH EYE Q12H 10/11/21 10/11/21 dropperette (Restasis) ibuprofen 200 mg tablet 200 mg PO Q6H PRN Pain 10/11/21 10/11/21 lysine 500 mg tablet (L-Lysine) 500 mg PO DAILY 10/11/21 10/11/21 multivitamin with minerals-folic 1 tablet PO DAILY 10/11/21 10/11/21 acid 0.4 mg tablet vitamins A,C,O-icgi-amgwzh 4,296 1 cap PO QAM AND QPM 10/11/21 10/11/21 mcg-226 mg-90 mg capsule (PreserVision AREDS) Allergies Allergy/AdvReac Type Severity Reaction Status Date / Time Cat Dander Allergy Unknown Uncoded 07/27/13 11:56 Dog Dander Allergy Unknown Uncoded 07/27/13 11:56 Molds and Smuts Allergy Unknown Uncoded 07/27/13 11:56 Review of Systems Review of Systems: All systems reviewed & are unremarkable except as noted in HPI and below PMFSH Past Medical History Medical History (Updated 01/24/23 @ 19:32 by Linda Jensen MD) Asthma Hypercholesterolemia Hypothyroidism Obesity Sepsis due to urinary tract infection Surgical History Surgical History History of appendectomy History of section Family History Family History Mother Cerebrovascular accident Father Emphysema lung Sibling AAA (abdominal aortic aneurysm) Sibling Rheumatoid arteritis Social History Social History Smoking packs per day: 1 Smoking cigarettes per day: 20.0 Years smoked: 50 Smoking pack-years: 50.00 Smoking status: Former smoker Tobacco type: cigarettes Second hand tobacco smoke exposure: Yes Alcohol intake: never Substance use: never Spiritual care concerns: No Exam Narrative: GENERAL: Well-appearing, well-nourished, and increased work of breathing. HEAD: Normocephalic, atraumatic. EYES: PERRLA and EOMI. ENT: Nares clear. Mucous membranes moist. NECK: Supple. CHEST: Coarse bilateral breath sounds diffusely with tachypnea. No respiratory distress. HEART: Tachycardic. Normal peripheral pulses. ABDOMEN: Soft, nontender, nondistended. EXTREMITIES: Normal range of motion. No edema. SKIN: Warm, dry, no rash. NEURO: No fo
[2023-01-24 17:12] LABS: Basophils Percent Auto 0.6 % (0.2-1.2); Eosinophils Percent Auto 0.1 % (0-4.4); Hematocrit 39.3 % (37.0-47.0); Hemoglobin 12.8 g/dL (12.0-15.0); Immature Granulocyte Absolute 0.02 K/mm3 (0.00-0.031); Immature Granulocyte Percent A 0.3 % (0-0.5); Lymphocytes Absolute Auto 1.12 K/mm3 (0.9-3.2); Lymphocytes Percent Auto 16.3 % (18.3-44.2); Mean Corpuscular HGB Conc 32.6 g/dl (32-36); Mean Corpuscular Hemoglobin 33.2 pg (26-34); Mean Corpuscular Volume 102.1 fl (80-100); Mean Platelet Volume 9.3 fl (7.4-10.4); Monocytes Absolute Auto 0.5 K/mm3 (0.1-0.6); Monocytes Percent Auto 6.7 % (2.6-8.5); Neutrophils Absolute Auto 5.2 K/mm3 (1.3-6.7); Platelet Count Result 231 k/mm3 (150-375); Red Blood Count 3.85 M/mm3 (4.2-5.4); Red Cell Distribution Width 13.3 % (11.5-14.5); White Blood Count 6.9 K/mm3 (4.5-10.0)
[2023-01-24 17:23] LABS: Alanine Aminotransferase 25 U/L (6-35); Albumin Level 4.1 g/dL (3.5-5.1); Alkaline Phosphatase 72 U/L (38-126); Anion Gap 5 mmol/L (8-16); Aspartate Amino Transferase 30 U/L (14-36); Bilirubin,Total 0.4 mg/dL (0.2-1.3); Blood Urea Nitrogen 10 mg/dL (7-17); Calcium 8.6 mg/dL (8.4-10.2); Carbon Dioxide 26 mmol/L (22-30); Chloride 107 mmol/L (98-107); Estimated CRCL calculation 71 ml/min; Estimated Glomerular Filt Rate > 60; Glucose 140 mg/dL (65-110); Potassium 3.9 mmol/L (3.4-5.0); Sodium 138 mmol/L (137-145)
[2023-01-24 17:23] LABS: Partial Thromboplastin Time 31.1 SECONDS (22.3-36.8); Prothrombin Time 13.7 Seconds (11.1-14.7)
[2023-01-24] MEDS: ALBUTEROL SULFATE NEB 2.5 MG/3 ML INH 15 MG INHALATION (17:25)
[2023-01-24] MEDS: IPRATROPIUM BR 0.02% INH SOLN 0.5 MG/2.5 ML VIAL 1.5 MG INHALATION (17:25)
[2023-01-24 17:30] LABS: Appearance Urine Cloudy (Clear); Bacteria Urine None Seen /hpf; Bilirubin Urine Negative (Negative); Blood Urine 3+ (Negative); Color Urine Yellow (Yellow); Glucose Urine UA Negative (Negative); Ketones Urine Negative (Negative); Leukocyte Esterase Ur Negative LEU/UL (Negative); Nitrate Urine Negative (Negative); Non Pathogenic Casts 0-2; Protein Urine 1+ mg/dL (Negative); RBC Urine 21-50 /hpf (0-2); Specific Grav Ur 1.022 (1.001-1.035); Squamous Epithelial Cell Urine Occasional /hpf (Few); Urobilinogen Urine 0.2 mg/dL (<2.0); WBC Urine 0-5 /hpf; pH Urine 5.5 (5.0-9.0)
[2023-01-24 17:34] LABS: NT Pro B Type Natriuretic Pept 387 pg/mL (19.9-100); Troponin I < 0.012 ng/mL (0.000-0.034)
[2023-01-24 17:38] LABS: Add Urine Microscopic? YES
[2023-01-24 17:49] LABS: Influenza A QL RT-PCR Positive (Negative); Influenza B QL RT-PCR Negative (Negative); RSV RNA, RT-PCR Negative (Negative); SARS-CoV-2 RNA PCR Negative (Negative)
--- NOTE | 2023-01-24 19:35 | PM.IMHP ---
H&P: HPI History of Present Illness Date/Time: 01/24/23 19:35 Chief Complaint: sob Narrative: This is a 72-year-old female with past medical history significant for hypo thyroidism, presumptive COPD/emphysema, patient smokes 1 and half pack of cigarettes daily for many years. Presents to the emergency room due to fevers, chills generalized malaise, muscle aches and pains, fevers, chills, back pain, cough, productive of white phlegm at times. In emergency room patient was found to have low pulse ox placed on supplemental oxygen by nasal cannula. Patient has not taking her flu shot this year. Patient has been placed in observation for further evaluation management and treatment. EXAMINATION: XR chest 1V portable INDICATION: Shortness of breath TECHNIQUE: Portable AP chest at 1658 hours COMPARISON: 10/09/2021 FINDINGS: The lungs are free of acute opacities. No pleural effusion or pneumothorax. The cardiomediastinal silhouette is normal. IMPRESSION: 1. No acute cardiopulmonary abnormality. Review of Systems Review of Systems: Cough, shortness of breath, muscle aches and pains, back pain. Constitutional: Constitutional: Reports body ache(s), Reports chills, Reports fatigue, Reports malaise, Denies night sweats and Reports weakness Eyes: Eyes: Denies change in vision ENT: Denies dysphagia and Denies odynophagia Cardiovascular: Cardiovascular: Denies chest pain, Denies radiating jaw, neck or arm pain and Denies palpitations Respiratory: Respiratory: Reports chest congestion, Reports cough, Reports dyspnea and Reports wheezing Gastrointestinal: Gastrointestinal: Denies abdominal pain, Denies dyspepsia, Denies heartburn, Denies diarrhea, Denies nausea and Denies vomiting Genitourinary: Genitourinary: Denies dysuria Musculoskeletal: Musculoskeletal: Reports myalgias Integumentary/Breasts: Skin/Breast: Denies rash Neurologic: Denies vertigo, Denies dizziness, Denies focal weakness and Denies Sensory deficit (Neuro) Psychiatric: Psychiatric: Reports no additional psychiatric complaints and Reports as per HPI Endocrine: Endocrine: Denies fatigue, Denies flushing, Denies heat intolerance, Denies polyphagia, Denies polydipsia, Denies polyuria and Denies palpitations Hematologic/Lymphatic: Hematologic/Lymphatic: Reports no additional hematologic/lymphatic complaints and Reports as per HPI Allergic/Immunologic: Allergic/Immunologic: Reports no additional allergic/immunologic complaints and Reports as per HPI ON LICENSE OF [facility] Past Medical History Medical History (Updated 01/24/23 @ 19:32 by Linda Jensen MD) Asthma Hypercholesterolemia Hypothyroidism Obesity Sepsis due to urinary tract infection Surgical History Surgical History History of appendectomy History of section Family History Family History Mother Cerebrovascular accident Father Emphysema lung Sibling AAA (abdominal aortic aneurysm) Sibling Rheumatoid arteritis Social History Social History Smoking packs per day: 1 Smoking cigarettes per day: 20.0 Years smoked: 50 Smoking pack-years: 50.00 Smoking status: Current every day smoker Tobacco type: cigarettes Second hand tobacco smoke exposure: Yes Alcohol intake: never Substance use: never Substance use type: does not use Lack of Transportation: No Lack of Food: Never True Current Housing: I Have Housing Concerned About Future Housing: No Difficulty Paying Gas/Electric Bills: No Difficulty Paying for Meds: No Currently Unemployed: No Education: Associate Degree Difficulty w/ Childcare or Family Care: No Spiritual care concerns: No Meds Home Medications and Allergies Home Medications Medication Instructions Recorded Confirmed Type albuterol sulfate 90 mcg/actuati
[2023-01-24] MEDS: IPRATROPIUM BR 0.02% INH SOLN 0.5 MG/2.5 ML VIAL INHALATION (20:04)
[2023-01-24] MEDS: ALBUTEROL SULFATE NEB 2.5 MG/3 ML INH INHALATION (20:04)
[2023-01-24 20:43] LABS: Troponin I < 0.012 ng/mL (0.000-0.034)
--- NOTE | 2023-01-24 21:05 | ADMGEN ---
This patient, Tess Garcia, was admitted to Medical Room 345-01. Patient/family oriented to hospital policies and general routines including ID bracelet, bed and alarms, visiting hours, pain management, procedures, bathroom and other care routines, personal items, smoking policy, room service/diet, and visiting hours. Information on how to activate the Rapid Response Team has been discussed. Patient/Family are encouraged to report perceived risks to care and to ask questions if they do not understand what they are told or what they should do.
[2023-01-24 23:32] LABS: Troponin I < 0.012 ng/mL (0.000-0.034)
[2023-01-24 23:52] LABS: Creatine Kinase 190 U/L (30-135)
[2023-01-25] VITALS (17 sets, daily range): BP systolic 116–135; BP diastolic 48–70; PULSE 83–116; RESP 15–20; TEMP 36.7–36.9; O2SAT 91–92
[2023-01-25] MEDS: OSELTAMIVIR PHOSPHATE 75 MG CAPSULE PO ×3 (00:43→20:50)
[2023-01-25] MEDS: SIMVASTATIN 20 MG TABLET 40 MG PO ×2 (00:43→20:50)
[2023-01-25] MEDS: cycloSPORINE 0.4 ML OPHTH SOLUTION 1 DROP EACH EYE ×2 (00:44→09:11)
[2023-01-25] MEDS: IPRATROPIUM BR 0.02% INH SOLN 0.5 MG/2.5 ML VIAL INHALATION ×4 (03:49→20:20)
[2023-01-25] MEDS: ALBUTEROL SULFATE NEB 2.5 MG/3 ML INH INHALATION ×4 (03:51→20:20)
[2023-01-25] MEDS: LEVOTHYROXINE SODIUM 25 MCG TABLET PO (06:07)
[2023-01-25] MEDS: LEVOTHYROXINE SODIUM 100 MCG TABLET PO (06:07)
[2023-01-25] MEDS: MONTELUKAST SODIUM 10 MG TABLET PO (09:11)
[2023-01-25] MEDS: CHOLECALCIFEROL 1,000 UNITS TABLET 4000 UNITS PO (09:11)
[2023-01-25] MEDS: OPTI-GEN TAB 1 TABLET PO ×2 (09:11→16:45)
[2023-01-25] MEDS: ENOXAPARIN 40 MG/0.4 ML SYRINGE SUB-Q (09:13)
[2023-01-25] MEDS: LOTEPREDNOL ETABONATE 0.2% OPH 5 ML SUSP 1 DROP EACH EYE (09:14)
--- NOTE | 2023-01-25 13:22 | PM.IMPN ---
Progress Note: A&P Assessment and Plan (1) Acute respiratory failure with hypoxia: Code(s): J96.01 - Acute respiratory failure with hypoxia Status: Acute Assessment and Plan: Patient's oxygen found to be 86% on presentation. She was put on 3 L. Likely due to combination of influenza a and COPD. Wean oxygen saturation to maintain O2 greater than 92%. DuoNebs q.6 Continue to monitor (2) Influenza A: Code(s): J10.1 - Influenza due to other identified influenza virus with other respiratory manifestations Status: Acute Assessment and Plan: Patient tested positive for influenza A. Patient is experiencing dry cough, shortness of breath for approximately 4 days prior to presentation. No abdominal pain, nausea or diarrhea noted. Will start Oseltamivir 75 mg p.o. b.i.d. even though it is >48 hours out of treatment window she still wanted to be treated. Patient requiring 3 L of oxygen at this time. (3) Asthma exacerbation in COPD: Code(s): J44.1 - Chronic obstructive pulmonary disease with (acute) exacerbation; J45.901 - Unspecified asthma with (acute) exacerbation Status: Acute Assessment and Plan: Patient appears to be in active COPD exacerbation. Patient states that her last cigarette was 1 her symptoms started 4 days ago. Patient states that she will no longer be smoking cigarettes anymore. Diffuse wheezing on respiratory exam. One time dose of Solu-Medrol 125 mg then 60 mg q.8 thereafter. Deescalate once symptoms start to improve. Will start on an azithromycin for a total of 5 days. DuoNebs q.6 (4) Hypothyroidism: Code(s): E03.9 - Hypothyroidism, unspecified Status: Acute Assessment and Plan: Continue home medication Subjective Date/time seen: 01/25/23 13:22 Interval history: Patient he states that she is feeling slightly better today. She has a very dry cough and having some difficulty catching her breath when she does cough. She does have pretty extensive wheezing on respiratory exam. Explained her that this is likely COPD exacerbation due to influenza a. Patient is understanding of this. She states that the breathing treatments are helping. She still requires oxygen at this time. Continue to monitor. Exam Narrative: GENERAL: Comfortable, no acute distress HENMT: moist mucous membranes EYES: EOM intact b/l NECK: no lymphadenopathy RESPIRATORY: diffuse expiratory wheezing CARDIO: distant heart sounds GI: soft, nontender, bowel sounds present SKIN: no rashes EXTREMITIES: no edema, redness or tenderness Objective Data Vital Signs Vital Signs: Vital Signs - 24 hr 01/24/23 16:46 01/24/23 16:51 01/24/23 16:52 Temperature 98.4 F Pulse Rate 120 H 124 H Respiratory Rate 30 H Blood Pressure 109/92 H Pulse Oximetry 86 L 86 L Oxygen Delivery Room Air Room Air Oxygen Flow Rate 01/24/23 16:53 01/24/23 18:08 01/24/23 19:08 Temperature Pulse Rate 110 H 111 H Respiratory Rate 20 26 H Blood Pressure 136/58 L 129/63 Pulse Oximetry 92 94 94 Oxygen Delivery Nasal Cannula Oxygen Flow Rate 4 01/24/23 19:26 01/24/23 20:05 01/24/23 20:54 Temperature Pulse Rate 112 H 116 H Respiratory Rate 28 H 19 Blood Pressure 129/63 Pulse Oximetry 94 93 Oxygen Delivery Nasal Cannula Oxygen Flow Rate 2 01/24/23 20:40 01/24/23 21:15 01/24/23 23:59 Temperature 99.5 F Pulse Rate 128 H 120 H Respiratory Rate 22 H Blood Pressure 119/75 118/45 L Pulse Oximetry 93 91 92 Oxygen Delivery Nasal Cannula Oxygen Flow Rate 3 01/25/23 03:51 01/25/23 04:05 01/25/23 00:00 Temperature 98.1 F Pulse Rate 102 H 107 H 116 H Respiratory Rate 20 20 Blood Pressure 122/48 L Pulse Oximetry 91 Oxygen Delivery Oxygen Flow Rate 01/25/23 04:00 01/25/23 08:38 01/25/23 08:41 Temperature Pulse Rate 107 H 89 89 Respiratory Rate 20 20 Blood Pressure
[2023-01-25] MEDS: methylPREDNISolone SOD SUCC 125 MG VIAL IV PUSH (15:00)
[2023-01-25] MEDS: AZITHROMYCIN 250 MG TABLET 500 MG PO (15:00)
[2023-01-25] MEDS: methylPREDNISolone SOD SUCC 125 MG VIAL 60 MG IV PUSH (20:50)
[2023-01-26] VITALS (23 sets, daily range): BP systolic 115–144; BP diastolic 57–81; PULSE 71–105; RESP 14–20; TEMP 36.5–36.8; O2SAT 87–95
[2023-01-26] MEDS: ALBUTEROL SULFATE NEB 2.5 MG/3 ML INH INHALATION ×3 (02:05→21:45)
[2023-01-26] MEDS: IPRATROPIUM BR 0.02% INH SOLN 0.5 MG/2.5 ML VIAL INHALATION ×3 (02:05→21:45)
[2023-01-26] MEDS: LEVOTHYROXINE SODIUM 100 MCG TABLET PO (06:14)
[2023-01-26] MEDS: LEVOTHYROXINE SODIUM 25 MCG TABLET PO (06:14)
[2023-01-26] MEDS: methylPREDNISolone SOD SUCC 125 MG VIAL 60 MG IV PUSH ×3 (06:16→21:15)
[2023-01-26 06:36] LABS: Hematocrit 38.9 % (37.0-47.0); Hemoglobin 12.5 g/dL (12.0-15.0); Mean Corpuscular HGB Conc 32.1 g/dl (32-36); Mean Corpuscular Hemoglobin 32.9 pg (26-34); Mean Corpuscular Volume 102.4 fl (80-100); Mean Platelet Volume 9.5 fl (7.4-10.4); Platelet Count Result 237 k/mm3 (150-375); White Blood Count 6.4 K/mm3 (4.5-10.0)
[2023-01-26 06:46] LABS: Alanine Aminotransferase 24 U/L (6-35); Albumin Level 3.5 g/dL (3.5-5.1); Alkaline Phosphatase 62 U/L (38-126); Anion Gap 3 mmol/L (8-16); Aspartate Amino Transferase 35 U/L (14-36); Bilirubin,Total 0.3 mg/dL (0.2-1.3); Blood Urea Nitrogen 19 mg/dL (7-17); Calcium 8.8 mg/dL (8.4-10.2); Carbon Dioxide 30 mmol/L (22-30); Chloride 105 mmol/L (98-107); Estimated CRCL calculation 73 ml/min; Estimated Glomerular Filt Rate > 60; Glucose 135 mg/dL (65-110); Potassium 4.6 mmol/L (3.4-5.0); Sodium 138 mmol/L (137-145)
[2023-01-26] MEDS: CHOLECALCIFEROL 1,000 UNITS TABLET 4000 UNITS PO (08:38)
[2023-01-26] MEDS: MONTELUKAST SODIUM 10 MG TABLET PO (08:38)
[2023-01-26] MEDS: OPTI-GEN TAB 1 TABLET PO ×2 (08:38→17:14)
[2023-01-26] MEDS: OSELTAMIVIR PHOSPHATE 75 MG CAPSULE PO ×2 (08:38→21:15)
[2023-01-26] MEDS: AZITHROMYCIN 250 MG TABLET PO (08:39)
[2023-01-26] MEDS: LOTEPREDNOL ETABONATE 0.2% OPH 5 ML SUSP 1 DROP EACH EYE (08:39)
[2023-01-26] MEDS: ENOXAPARIN 40 MG/0.4 ML SYRINGE SUB-Q (08:39)
--- NOTE | 2023-01-26 15:38 | PM.IMPN ---
Progress Note: A&P Assessment and Plan (1) Acute respiratory failure with hypoxia: Code(s): J96.01 - Acute respiratory failure with hypoxia Status: Acute Assessment and Plan: Patient's oxygen found to be 86% on presentation. She was put on 3 L. Likely due to combination of influenza a and COPD. Wean oxygen saturation to maintain O2 greater than 92%. DuoNebs q.6 Continue to monitor 01/26: Home O2 eval ordered and pending, will need O2 at home (2) Influenza A: Code(s): J10.1 - Influenza due to other identified influenza virus with other respiratory manifestations Status: Acute Assessment and Plan: Patient tested positive for influenza A. Patient is experiencing dry cough, shortness of breath for approximately 4 days prior to presentation. No abdominal pain, nausea or diarrhea noted. Will start Oseltamivir 75 mg p.o. b.i.d. even though it is >48 hours out of treatment window she still wanted to be treated. Patient requiring 3 L of oxygen at this time. (3) Asthma exacerbation in COPD: Code(s): J44.1 - Chronic obstructive pulmonary disease with (acute) exacerbation; J45.901 - Unspecified asthma with (acute) exacerbation Status: Acute Assessment and Plan: Patient appears to be in active COPD exacerbation. Patient states that her last cigarette was 1 her symptoms started 4 days ago. Patient states that she will no longer be smoking cigarettes anymore. Diffuse wheezing on respiratory exam. One time dose of Solu-Medrol 125 mg then 60 mg q.8 thereafter. Deescalate once symptoms start to improve. Will start on an azithromycin for a total of 5 days. DuoNebs q.6 (4) Hypothyroidism: Code(s): E03.9 - Hypothyroidism, unspecified Status: Acute Assessment and Plan: Continue home medication Plan DVT prophylaxis with Lovenox GI prophylaxis not indicated Code status full code Subjective Date/time seen: 01/26/23 15:38 Interval history: 72-year-old female with history of hypothyroidism, COPD, asthma is presenting with shortness of breath being treated for flu, COPD exacerbation. 01/26: No overnight events noted. No chest pain or shortness of breath. No nausea, vomiting or diarrhea. No fevers or chills. Still requires oxygen at baseline. Patient admits she has had far more symptoms than just recently and suspects she has needed oxygen at home for a while. Review of Systems Review of Systems: 12 point review of systems was assessed and was negative except as noted in the HPI Exam Narrative: General: No acute distress, alert and oriented per baseline HEENT: Atraumatic, normocephalic, mucous membranes moist CV: Regular rate and rhythm, S1, S2 Lungs: Tight breath sounds throughout, scattered wheezes, diminished at bases Abdomen: Soft, nontender, nondistended Extremities: Normal to inspection Skin: No rashes noted, no lesions or wounds seen Psych: Euthymic, normal affect Objective Data Vital Signs Vital Signs: Vital Signs - 24 hr 01/25/23 16:00 01/25/23 20:20 01/25/23 20:24 Temperature Pulse Rate 89 86 86 Respiratory Rate 20 Blood Pressure Pulse Oximetry 92 Oxygen Delivery Nasal Cannula Oxygen Flow Rate 2 01/25/23 20:29 01/25/23 20:42 01/25/23 20:00 Temperature 98.4 F Pulse Rate 89 85 Respiratory Rate 20 15 Blood Pressure 135/70 Pulse Oximetry 91 92 Oxygen Delivery Nasal Cannula Oxygen Flow Rate 2 01/25/23 20:00 01/26/23 00:00 01/26/23 02:05 Temperature Pulse Rate 87 86 71 Respiratory Rate 18 Blood Pressure Pulse Oximetry Oxygen Delivery Oxygen Flow Rate 01/26/23 02:15 01/26/23 04:00 01/26/23 05:52 Temperature 97.9 F Pulse Rate 75 82 74 Respiratory Rate 20 14 Blood Pressure 115/57 L Pulse Oximetry 92 Oxygen Delivery Oxygen Flow Rate 01/26/23 08:00 01/26/23 12:58 01/26/23 13:08 Temperature Pulse Ra
[2023-01-26] MEDS: ALBUTEROL SULFATE (*SP) AEROSOL 1 PUFF 2 PUFF INHALATION (16:43)
--- NOTE | 2023-01-26 17:18 | HOMEO2EVAL ---
Evaluation was performed at [facility] Home Oxygen Evaluation RC: Home Oxygen (O2) Evaluation Start: 01/26/23 15:40 Freq: ONCE Status: Active Protocol: RPE Activity Type Activity Date Activity User E-sign Co-sign Detail Recorded Client Recorded Date Recorded By Document 01/26/23 16:25 JCC [email or web address] 01/26/23 17:16 JCC Document 01/26/23 16:26 [email or web address] [email or web address] 01/26/23 17:16 JCC Document 01/26/23 16:28 [email or web address] [email or web address] 01/26/23 17:16 JCC Document 01/26/23 16:35 [email or web address] [email or web address] 01/26/23 17:16 JCC Document 01/26/23 16:38 [email or web address] [email or web address] 01/26/23 17:16 JCC Document 01/26/23 16:40 [email or web address] [email or web address] 01/26/23 17:16 JCC Document 01/26/23 16:50 [email or web address] [email or web address] 01/26/23 17:16 JCC 01/26/23 01/26/23 01/26/23 16:25 16:26 16:28 Home O2 Evaluation [Oxygen] -Test Phase Resting Resting Resting -Oxygen Delivery Room Air Nasal Cannula Nasal Cannula -Oxygen Flow Rate (L/min) 1 2 [Pulse Oximetry] -Pulse Oximetry (90-100 %) 87 L 88 L 90 [Pulse Rate] -Pulse Rate (60-100 beats/min) 96 97 99 [Evaluation] -Activity Tolerance Good Good -Rating of Perceived Dyspnea (PD) +3 Moderate Difficulty, But Can Continue -Rate of Perceived Exertion (PE) 11 Fairly light Query Text:Click the Protocol Button to View the RPE Scale [Exercise] -Ambulation Distance (feet) -Ambulation Distance (meters) [Comments] -Home Oxygen Evaluation Comments at rest , at rest, walk initiated. increased to 1l increased to 2l /m /m 01/26/23 01/26/23 01/26/23 16:35 16:38 16:40 Home O2 Evaluation [Oxygen] -Test Phase Exercise Exercise Exercise -Oxygen Delivery Nasal Cannula Nasal Cannula Nasal Cannula -Oxygen Flow Rate (L/min) 2 3 4 [Pulse Oximetry] -Pulse Oximetry (90-100 %) 88 L 88 L 90 [Pulse Rate] -Pulse Rate (60-100 beats/min) 101 H 102 H 105 H [Evaluation] -Activity Tolerance Fair Fair Fair -Rating of Perceived Dyspnea (PD) +3 Moderate +3 Moderate +3 Moderate Difficulty, But Difficulty, But Difficulty, But Can Continue Can Continue Can Continue -Rate of Perceived Exertion (PE) 15 Hard 15 Hard Query Text:Click the Protocol Button to View the RPE Scale [Exercise] -Ambulation Distance (feet) 50 100 150 -Ambulation Distance (meters) 15.23 30.47 45.71 [Comments] -Home Oxygen Evaluation Comments pt also stopped increased to 4l to toilet /m during this time. increased to 3l/m 01/26/23 16:50 Home O2 Evaluation [Oxygen] -Test Phase Resting -Oxygen Delivery Nasal Cannula -Oxygen Flow Rate (L/min) 3 [Pulse Oximetry] -Pulse Oximetry (90-100 %) 92 [Pulse Rate] -Pulse Rate (60-100 beats/min) 82 [Evaluation] -Activity Tolerance Good -Rating of Perceived Dyspnea (PD) +2 Mild, Some Difficulty, Noticeable to the Observer -Rate of Perceived Exertion (PE) 11 Fairly light Query Text:Click the Protocol Button to View the RPE Scale [Exercise] -Ambulation Distance (feet) -Ambulation Distance (meters) [Comments] -Home Oxygen Evaluation Comments recovery
--- NOTE | 2023-01-26 17:20 | PCRCNOTE ---
Home o2 eval done. Pt qualifies for 3l/m o2 at rest and 4l/m with activity. Carmen from [facility] contacted to intiate home o2.
[2023-01-26] MEDS: SIMVASTATIN 20 MG TABLET 40 MG PO (21:15)
[2023-01-27] VITALS (11 sets, daily range): BP systolic 127; BP diastolic 72; PULSE 66–87; RESP 16–20; TEMP 36.6; O2SAT 93–95
[2023-01-27] MEDS: IPRATROPIUM BR 0.02% INH SOLN 0.5 MG/2.5 ML VIAL INHALATION ×3 (02:39→13:45)
[2023-01-27] MEDS: ALBUTEROL SULFATE NEB 2.5 MG/3 ML INH INHALATION ×3 (02:39→13:45)
[2023-01-27] MEDS: methylPREDNISolone SOD SUCC 125 MG VIAL 60 MG IV PUSH ×2 (06:00→13:15)
[2023-01-27] MEDS: LEVOTHYROXINE SODIUM 25 MCG TABLET PO (06:01)
[2023-01-27] MEDS: LEVOTHYROXINE SODIUM 100 MCG TABLET PO (06:01)
[2023-01-27] MEDS: CHOLECALCIFEROL 1,000 UNITS TABLET 4000 UNITS PO (08:39)
[2023-01-27] MEDS: LOTEPREDNOL ETABONATE 0.2% OPH 5 ML SUSP 1 DROP EACH EYE (08:40)
[2023-01-27] MEDS: MONTELUKAST SODIUM 10 MG TABLET PO (08:40)
[2023-01-27] MEDS: ENOXAPARIN 40 MG/0.4 ML SYRINGE SUB-Q (08:40)
[2023-01-27] MEDS: OPTI-GEN TAB 1 TABLET PO (08:40)
[2023-01-27] MEDS: OSELTAMIVIR PHOSPHATE 75 MG CAPSULE PO (08:40)
[2023-01-27] MEDS: AZITHROMYCIN 250 MG TABLET PO (08:40)
--- NOTE | 2023-01-27 12:36 | PM.DS ---
DS: Admitting Diagnosis Discharge Date 01/27/23 Admitting Diagnosis sob DS: Discharge Diagnosis Discharge Diagnosis (1) Acute respiratory failure with hypoxia: Code(s): J96.01 - Acute respiratory failure with hypoxia Status: Acute Assessment and Plan: Patient's oxygen found to be 86% on presentation. She was put on 3 L. Likely due to combination of influenza a and COPD. Wean oxygen saturation to maintain O2 greater than 92%. DuoNebs q.6 Continue to monitor 01/26: Home O2 eval ordered and pending, will need O2 at home (2) Influenza A: Code(s): J10.1 - Influenza due to other identified influenza virus with other respiratory manifestations Status: Acute Assessment and Plan: Patient tested positive for influenza A. Patient is experiencing dry cough, shortness of breath for approximately 4 days prior to presentation. No abdominal pain, nausea or diarrhea noted. Will start Oseltamivir 75 mg p.o. b.i.d. even though it is >48 hours out of treatment window she still wanted to be treated. Patient requiring 3 L of oxygen at this time. (3) Asthma exacerbation in COPD: Code(s): J44.1 - Chronic obstructive pulmonary disease with (acute) exacerbation; J45.901 - Unspecified asthma with (acute) exacerbation Status: Acute Assessment and Plan: Patient appears to be in active COPD exacerbation. Patient states that her last cigarette was 1 her symptoms started 4 days ago. Patient states that she will no longer be smoking cigarettes anymore. Diffuse wheezing on respiratory exam. One time dose of Solu-Medrol 125 mg then 60 mg q.8 thereafter. Deescalate once symptoms start to improve. Will start on an azithromycin for a total of 5 days. DuoNebs q.6 (4) Hypothyroidism: Code(s): E03.9 - Hypothyroidism, unspecified Status: Acute Assessment and Plan: Continue home medication Plan DVT prophylaxis with Lovenox GI prophylaxis not indicated Code status full code DS: Summary Hospital Course Hospital Course: 72-year-old female with history of hypothyroidism, COPD, asthma is presenting with shortness of breath being treated for flu, COPD exacerbation. Patient's oxygen found to be 86% on presentation.? She was put on 3 L.? Likely due to combination of influenza a and COPD.? Wean oxygen saturation to maintain O2 greater than 92%. DuoNebs q.6 Continue to monitor 01/26: Home O2 eval ordered and pending, will need O2 at home All symptoms improved significantly. Please see above and med rec for details. Patient was discharged with home oxygen and follow-up care. She will be closely followed outpatient and was discharged on steroids antibiotics to complete her courses. Time Spent with Patient Time attestation: Total time spent providing and/or coordinating discharge services: Exam Narrative: General: No acute distress, alert and oriented per baseline HEENT: Atraumatic, normocephalic, mucous membranes moist CV: Regular rate and rhythm, S1, S2 Lungs: Tight breath sounds throughout, scattered wheezes, diminished at bases Abdomen: Soft, nontender, nondistended Extremities: Normal to inspection Skin: No rashes noted, no lesions or wounds seen Psych: Euthymic, normal affect Discharge Plan Discharge Attending physician on discharge: Sarah Rogers Discharging Clinician: Sarah Rogers Patient Disposition: Home, Self-Care Activity: as tolerated Diet: as tolerated Patient Instructions: Antibiotic Form, How to Stop Smoking (DC) Stand Alone Forms: General Discharge Information Follow-up/Referrals: Jacinto,JOSEFA Fox [Primary Care Provider] - Discharge Medications: New prednisone 50 mg tablet 50 mg PO DAILY 3 Days Qty: 3 0RF pantoprazole [Protonix] 40 mg tablet,delayed release (DR/EC) 40 mg PO HS 30 Days Qty: 30 0RF levofloxacin 750 mg tablet 750 mg PO DAILY 5 Days Qty: 5 0RF
== END 2023-01-27 15:40 | disposition home or self-care (01) | DRG 193 ==
LOC: ANHED 19:32 → ANH3MED 20:23
PROVIDERS: Internal Medicine Critical Care Medicine; Admitting Provider Internal Medicine; Emergency Provider Student in an Organized Health Care Education/Training Program; PCP Physician Assistant; Visit Provider Student in an Organized Health Care Education/Training Program
DX: J96.01 Acute respiratory failure with hypoxia; J43.9 Emphysema, unspecified; E78.00 Pure hypercholesterolemia, unspecified; J10.1 Influenza due to other identified influenza virus with other respiratory manifestations; E03.9 Hypothyroidism, unspecified; E66.9 Obesity, unspecified; F17.210 Nicotine dependence, cigarettes, uncomplicated; Z23 Encounter for immunization; Z20.822 Contact with and (suspected) exposure to COVID-19; Z68.35 Body mass index [BMI] 35.0-35.9, adult; Z90.49 Acquired absence of other specified parts of digestive tract
CPT/HCPCS: 36415; 71045; 80053; 81001; 82550; 83880; 84484; 85025; 85027; 85610; 85730; 87637; 90471; 90694; 93005; 94640; 99291; A9270; G0008; J1650; J2930